=== PATIENT | male | born 1970 | race Caucasian/White ===

== ENCOUNTER 2018-01-22 09:02 | Day surgery (SDC) | payer OTHER ==
[~2018-01-22] VITALS: Ht 185.4 cm; Wt 102.1 kg
[~2018-01-22 09:02] MED LIST: ALLP100T PO; ASP325TEC PO; DIGO0.25 PO; DILT240C PO; LISI10TA PO; LSNP10T PO; MTP25TSR PO; OMEG-12 PO; PNT40TEC PO; RIVA20TA2 PO
--- OUTSIDE RECORDS SUMMARY | 2018-01-22 09:05 | XMS REPORT | Continuity of Care Document ---
Author Author [facility] Organization [facility] Address Unknown Phone Unavailable Allergies There is no data. Medications There is no data. Problems There is no data. Procedures There is no data. Results There is no data. Encounters ACCT No. Visit Date/Time Discharge Status Pt. Type Provider Facility Loc./Unit Complaint [id number] 03/02/2013 10:45:00 03/03/2013 14:26:00 DIS Inpatient [id number] 01/12/2013 18:09:00 01/14/2013 16:30:00 DIS Inpatient
[2018-01-22 09:29] VITALS: BP 158/103
[2018-01-22] MEDS ORDERED: LIDOCAINE 1% INJ 20 ML 20 ML VIAL ONE (09:40)
--- NOTE | 2018-01-22 10:33 | Implantation of Loop Monitor ---
Implant of Loop Monitior IMPLANTATION OF LOOP MONITOR REPORT DATE OF PROCEDURE: 01/22/18 PREOP DIAGNOSIS: Paroxysmal atrial flutter POSTOP DIAGNOSIS: Paroxysmal atrial flutter PROCEDURE DETAILS: The patient is a 47 male with history of paroxysmal atrial fibrillation requiring long-term surveillance. Therefore implantable loop recorder was discussed and agreed with the patient. Informed consent was taken. All risks and complications were discussed at length. The patient was draped and prepped in the usual sterile fashion. Local anesthesia was lidocaine, which was given in the substernal area close to the 4th intercostal space. Loop monitor [employer] Serial # [id number] was implanted according to the protocol. Steri- Strips were placed at the end of the procedure. There were no complications and the patient tolerated the procedure well. The device was interrogated with a voltage of. ANESTHESIA: Local anesthesia with lidocaine. COMPLICATIONS: None CONTRAST/FLUOROSCOPY: None CONCLUSION: 1. Successful reveal device implantation with no complication FINAL DIAGNOSIS: Proximal atrial flutter Congestive heart failure, chronic compensated left ventricular systolic dysfunction, nonischemic cardiomyopathy, ejection fraction 40-45 percent Hypertension Hyperlipidemia CHAR LUJAN MD January 22, 2018 10:33
[2018-01-22 10:55] VITALS: BP 129/105
== END 2018-01-22 10:59 | disposition home or self-care (01) ==
LOC: CARD 09:02
PROVIDERS: ATTEND Internal Medicine Cardiovascular Disease
DX: I48.0 Paroxysmal atrial fibrillation (principal); I11.0 Hypertensive heart disease with heart failure; I50.22 Chronic systolic (congestive) heart failure; E78.5 Hyperlipidemia, unspecified; I42.0 Dilated cardiomyopathy; N52.9 Male erectile dysfunction, unspecified; F17.210 Nicotine dependence, cigarettes, uncomplicated; Z79.899 Other long term (current) drug therapy
CPT/HCPCS: 33282; 93306

== ENCOUNTER 2019-04-06 13:30 | Inpatient (IN) | payer BC, OTHER ==
[~2019-04-06] VITALS: Ht 185.4 cm; Wt 97.2 kg
--- NOTE | 2019-04-06 13:30 | NUR ---
pt here with per . pt alert gcs 15. pt been c/o general weakness and forrester x 1 week. pt has h/o a fib and is on blood thinner xyaltro. currently pt denies chest and abd pain. c/o nausea and relates v/d 3 days ago none since. resp shallow nonlabored. skin pale and dry. i ausc hr and radial heart rate which is ? bradycardia at same time some applied tele and pt in sb 30. lungs cta with decreased aeration bases bilaterally. abd w/o pain with palpation. someone applying pacer pads. some one starting iv and labs. done kem pt at 1338.
[2019-04-06] MEDS ORDERED: NS IV 1000 ML 1,000 ML IV SCH ×2 (13:45→15:00)
[2019-04-06] MEDS ORDERED: ASPIRIN 81 MG CHEW (CHILDREN'S ASA) PO ONE (13:45)
--- NOTE | 2019-04-06 13:47 | ED Cardiac General ---
History of Present Illness General Stated Complaint: WEAKNESS;SOA Source: patient Exam Limitations: no limitations History of Present Illness Date Seen by Provider: Apr 06, 2019 Time Seen by Provider: 13:44 Initial Comments To ER per private vehicle with reports of weakness and shortness of breath. He denies chest pain. Symptoms began last Saturday after he exerted himself in the heat. He didn't urinate for about 1.5 days. He's had this sensation of weakness and shortness of breath intermittently since then, worse today. He was able to go to work this morning but felt too bad so he came here. History of ablation for atrial fibrillation. He is on diltiazem 360 mg daily, xarelto, metoprolol 100 mg daily. Timing/Duration: 1 week, getting worse Activities at Onset: none Prior CP/Workup: no prior chest pain Modifying Factors: improves with rest NTG SL ELECTRICAL APPRENTICE: No ASA po ELECTRICAL APPRENTICE: No Associated Systoms: Shortness of Air, Weakness Allergies and Home Medications Allergies Coded Allergies: No Known Drug Allergies (Unverified , 01/12/13) Home Medications Allopurinol 100 Mg Tablet, 100 MG PO DAILY, (Reported) Digoxin 0.25 Mg/5 Ml Solution, 0.25 MG PO DAILY, (Reported) Diltiazem Hcl 240 Mg Cap.sr.24h, 1 EACH PO DAILY, (Reported) Metoprolol Succinate 25 Mg Tab.sr.24h, 25 MG PO DAILY, (Reported) [place]-3/Dha/Epa/Fish Oil 1 Each Capsule.dr, 1,000 MG PO DAILY, (Reported) Pantoprazole Sodium 40 Mg Tablet.dr, 40 MG PO DAILY, (Reported) Rivaroxaban 20 Mg Tablet, 20 MG PO DAILY, (Reported) Patient Home Medication List Home Medication List Reviewed: Yes Review of Systems Review of Systems Constitutional: see HPI EENTM: No Symptoms Reported Respiratory: Shortness of Air Cardiovascular: See HPI; Denies Chest Pain Gastrointestinal: No Symptoms Reported Genitourinary: No Symptoms Reported Musculoskeletal: no symptoms reported Skin: no symptoms reported Psychiatric/Neurological: No Symptoms Reported Endocrine: No Symptoms Reported Hematologic/Lymphatic: No Symptoms Reported Past Ckgxfhy-Kveiss-Zdcknb Hx Patient Social History Recent Foreign Travel: No Contact w/Someone Who Travel: No Immunizations Up To Date Tetanus Booster (TDap): More than 5yrs Date of Pneumonia Vaccine: Mar 02, 2010 Past Medical History Reproductive Disorders: No Sexually Transmitted Disease: No HIV/AIDS: No Adverse Reaction/Blood Tranf: No (Never has had a transfusion) Family Medical History No Pertinent Family Hx Physical Exam Vital Signs Capillary Refill : Height, Weight, BMI Height: 6'1.00" Weight: 225lbs. 0.0oz. 102.775947pl; 29.7 BMI Method:Stated General Appearance: No Apparent Distress, WD/WN, Other (alert and oriented, mentating well, blood pressure is 90/74, heart rate is 28-30, narrow complex, one P wave before each QRS complex without apparent P/QRS dissociation.) Neck: Full Range of Motion, Normal Inspection Respiratory: Chest Non Tender, Lungs Clear, Normal Breath Sounds Cardiovascular: Normal Peripheral Pulses, Bradycardia Gastrointestinal: Normal Bowel Sounds, Non Tender, Soft Extremity: Normal Capillary Refill, Normal Inspection Neurologic/Psychiatric: Alert, Oriented x3 Skin: Normal Color, Warm/Dry Progress/Results/Core Measures Results/Orders Lab Results Laboratory Tests Test 04/06/19 13:40 Range/Units White Blood Count 11.3 H 4.3-11.0 10^3/uL Red Blood Count 4.62 4.35-5.85 10^6/uL Hemoglobin 13.3 13.3-17.7 G/DL Hematocrit 40 40-54 % Mean Corpuscular Volume 86 80-99 FL Mean Corpuscular Hemoglobin 29 25-34 PG Mean Corpuscular Hemoglobin Concent 33 32-36 G/DL Red Cell Distribution Width 14.5 10.0-14.5 % Platelet Count 251 130-400 10^3/uL Mean Platelet Volume 10.1 7.4-10.4 FL Neutrophils (%) (Auto) 56 42-75 % Lymphocytes (%) (Auto) 32 12-44 % Monocytes (%) (Auto) 10 0-12 % Eosinophils (%) (Auto) 2 0-10 % Basophils (%) (Auto) 1 0-10 % Neutrophils # (Auto) 6.3 1.8-7.8 X 10^3 Lymphocytes # (Auto) 3.6 1.0-4.0 X 10^3 Monocytes # (Auto) 1.1 H 0.0-1.0 X 10^3 Eosinophils # (Auto) 0.3 0.0-0.3 10^3/uL Basophils # (Auto) 0.1 0.0-0.1 10^3/uL Prothrombin Time 27.4 H 12.2-14.7 SEC INR Comment 2.4 H 0.8-1.4 Activated Partial Thromboplast Time 43 H 24-35 SEC Sodium Level 133 L 135-145 MMOL/L Potassium Level 5.6 H 3.6-5.0 MMOL/L Chloride Level 108 H 98-107 MMOL/L Carbon Dioxide Level 16 L 21-32 MMOL/L Anion Gap 9 5-14 MMOL/L Blood Urea Nitrogen 45 H 7-18 MG/DL Creatinine 1.91 H 0.60-1.30 MG/DL Estimat Glomerular Filtration Rate 38 BUN/Creatinine Ratio 24 Glucose Level 164 H 70-105 MG/DL Calcium Level 9.3 8.5-10.1 MG/DL Corrected Calcium 9.1 8.5-10.1 MG/DL Magnesium Level 1.9 1.8-2.4 MG/DL Total Bilirubin 0.5 0.1-1.0 MG/DL Aspartate Amino Transf (AST/SGOT) 23 5-34 U/L Alanine Aminotransferase (ALT/SGPT) 24 0-55 U/L Alkaline Phosphatase 74 40-136 U/L Myoglobin 103.7 H 10.0-92.0 NG/ML Troponin I < 0.028 <0.028 NG/ML B-Type Natriuretic Peptide 203.7 H <100.0 PG/ML Total Protein 7.2 6.4-8.2 GM/DL Albumin 4.2 3.2-4.5 GM/DL My Orders Orders - RIGOBERTO FELDER CARDIOPULMONARY TECHNOLOGIST Cbc With Automated Diff (04/06/19 13:34) Magnesium (04/06/19 13:34) Chest 1 View, Ap/Pa Only (04/06/19 13:34) Ekg Tracing (04/06/19 13:34) Cardiac Profile 1 (04/06/19 13:34) Comprehensive Metabolic Panel (04/06/19 13:34) Myoglobin Serum (04/06/19 13:34) Protime With Inr (04/06/19 13:34) Partial Thromboplastin Time (04/06/19 13:34) O2 (04/06/19 13:34) Monitor-Rhythm Ecg Trace Only (04/06/19 13:34) Lipid Panel (7/23/19 06:00) Ed Iv/Invasive Line Start (04/06/19 13:34) BNP (04/06/19 13:34) Aspirin Chewable Tablet (Baby Aspirin Ch (04/06/19 13:45) Ns Iv 1000 Ml (Sodium Chloride 0.9%) (04/06/19 13:45) Glucagon Emergency Kit (Glucagon Emergen (04/06/19 14:00) Ondansetron Injection (Zofran Injectio (04/06/19 14:00) Calcium Gluconate 10% Inj (Calcium Glu (04/06/19 14:15) Atropine Injection (Atropine Injection) (04/06/19 15:00) Normal Saline Bolus 1,000ml (04/06/19 15:00) Medications Given in ED Current Medications Medications Dose Ordered Sig/Aisha Route Start Time Stop Time Status Last Admin Dose Admin Aspirin 324 mg ONCE ONCE PO 04/06/19 13:45 04/06/19 13:46 DC 04/06/19 13:54 324 MG Calcium Gluconate 4.65 meq ONCE ONCE IV 04/06/19 14:15 04/06/19 14:16 DC 04/06/19 14:19 4.65 MEQ Glucagon 4 mg ONCE ONCE IV 04/06/19 14:00 04/06/19 14:01 DC 04/06/19 14:09 4 MG Ondansetron HCl 4 mg ONCE ONCE IVP 04/06/19 14:00 04/06/19 14:01 DC 04/06/19 14:04 4 MG Ondansetron HCl 4 mg ONCE ONCE IVP 04/06/19 14:15 04/06/19 14:16 DC 04/06/19 14:15 4 MG Critical Care Note Critical Care Start Time: 14:00 Stop Time: 15:15 Total Time (minutes) 75 Departure Communication (Admissions) Time/Spoke to Admitting Phy: 14:[address] Hurtado who agrees to admit. Time/Spoke to Consulting Phy: 14:[address] Lubin, agrees to consult, IV fluids, admit to ICU, weight for beta blockers to wear off. If this fails to improve heart rate then will need pacemaker. Patient had an episode of decrease in blood pressure to 79 and 80 systolic on consecutive readings. Heart rate remained 27. He was given 3 mg of IV glucagon with resultant effect of nausea and heart rate increased from 26-32. He was also given 1 g of IV calcium gluconate. He was given 8 mg of Zofran for the vomiting. His blood pressure did increase to 109 over 60s. At approximately 1445 his blood pressure again dropped to 79 systolic heart rate in the 27 range. He was given 2 doses of few minutes apart of 0.5 mg of atropine with resultant increase of heart rate from 25-35, blood pressure increased from 79 systolic to 95 systolic. If he has a recurrent drop in blood pressure into the 80 range we will proceed w ith transcutaneous pacing. Impression Primary Impression: Symptomatic bradycardia Disposition: ADMITTED INPATIENT Condition: Stable Admissions Decision to Admit Reason: Admit from ER (General) Decision to Admit/Date: Apr 06, 2019 Time/Decision to Admit Time: 13:54 Departure-Patient Inst. Referrals: CARLOS SANTOS MD (PCP) Primary Care Physician KRYSTEN BEST (Family) Primary Care Physician RIGOBERTO FELDER APRN Apr 06, 2019 13:47
[2019-04-06 13:50] LABS: BASOPHILS # (AUTO) 0.1 10^3/uL (0.0-0.1); BASOPHILS % (AUTO) 1 % (0-10); EOSINOPHILS # (AUTO) 0.3 10^3/uL (0.0-0.3); EOSINOPHILS % (AUTO) 2 % (0-10); HEMATOCRIT 40 % (40-54); HEMOGLOBIN 13.3 G/DL (13.3-17.7); LYMPHOCYTES # (AUTO) 3.6 X 10^3 (1.0-4.0); LYMPHOCYTES % (AUTO) 32 % (12-44); MEAN CORPUSCULAR HEMOGLOBIN 29 PG (25-34); MEAN CORPUSCULAR HGB CONC 33 G/DL (32-36); MEAN CORPUSCULAR VOLUME 86 FL (80-99); MEAN PLATELET VOLUME 10.1 FL (7.4-10.4); MONOCYTES # (AUTO) 1.1 X 10^3 (0.0-1.0); MONOCYTES % (AUTO) 10 % (0-12); NEUTROPHILS # (AUTO) 6.3 X 10^3 (1.8-7.8); NEUTROPHILS % (AUTO) 56 % (42-75); PLATELET COUNT 251 10^3/uL (130-400); RED CELL DISTRIBUTION WIDTH 14.5 % (10.0-14.5); WHITE BLOOD COUNT 11.3 10^3/uL (4.3-11.0)
--- NOTE | 2019-04-06 13:57 | NUR ---
bp machine is 81/48 radial hr is 28. resp 16 . p ox r/a is 99. knows v/s
[2019-04-06] MEDS ORDERED: GLUCAGON EMERGENCY 1 MG/KIT IV ONE (14:00)
[2019-04-06] MEDS ORDERED: ONDANSETRON 4 MG/2 ML (SDV) Z0FRAN IVP ONE ×2 (14:00→14:15)
--- NOTE | 2019-04-06 14:05 | NUR ---
bp machine is 78/46 tele shows sb 26 p ox r/a is 99. pt alert gcs 15 in room
[2019-04-06 14:07] LABS: INR 2.4 (0.8-1.4); PROTHROMBIN TIME PATIENT 27.4 SEC (12.2-14.7)
[2019-04-06 14:09] LABS: ALANINE AMINOTRANSFERASE 24 U/L (0-55); ALBUMIN 4.2 GM/DL (3.2-4.5); ALKALINE PHOSPHATASE 74 U/L (40-136); BILIRUBIN,TOTAL 0.5 MG/DL (0.1-1.0); BUN/CREATININE RATIO 24; CALCIUM 9.3 MG/DL (8.5-10.1); CARBON DIOXIDE 16 MMOL/L (21-32); CHLORIDE 108 MMOL/L (98-107); CREATININE SERUM 1.91 MG/DL (0.60-1.30); GFR ESTIMATED 38; GLUCOSE 164 MG/DL (70-105); MAGNESIUM 1.9 MG/DL (1.8-2.4); POTASSIUM 5.6 MMOL/L (3.6-5.0); SODIUM 133 MMOL/L (135-145); TOTAL PROTEIN 7.2 GM/DL (6.4-8.2)
--- NOTE | 2019-04-06 14:09 | NUR ---
[facility] just has 3 mg glucagon cause thats all pharmacy sent.
--- NOTE | 2019-04-06 14:12 | Diagnostic Imaging Report ---
Indication: Weakness and shortness of air Comparison: 03/02/2013 Technique: Single frontal radiographic view of the chest dated 04/06/2019. Findings: The cardiac silhouette is within normal limits in size. No significant pulmonary vascular congestion. Recorder device is identified overlying the left heart border. The lungs are clear of focal pulmonary opacity. No pleural effusion. No pneumothorax. No acute osseous abnormality. Impression: No acute cardiopulmonary abnormality with additional findings as above. Dictated by: Dictated on workstation # [id number]
[2019-04-06] MEDS ORDERED: CALCIUM GLUC. 10% 4.65 MEQ/10 ML VIAL IV ONE (14:15)
--- NOTE | 2019-04-06 14:15 | NUR ---
pt with small amount of n/v from glucagon
--- NOTE | 2019-04-06 14:21 | NUR ---
bp machine is 109/58 tele shows jr 30. pt alert gcs 15. in room. p ox r/a is 97. no acute sighns of dyspnea noted. dr knows pt now in jr.
--- NOTE | 2019-04-06 14:23 | NUR ---
pt alert gcs 15. in room. bp machine is 90/47 radial pulse is 28. p ox r/a is 98. 2nd ekg in progress. pt denies chest pain and dyspnea and no acute sighns of dyspnea noted. pt been having very small amount of n/v 2ndary to glucagon iv per
--- NOTE | 2019-04-06 14:34 | NUR ---
pt had very short burst of idioventriccal rytym then back to jr. dr culps
--- NOTE | 2019-04-06 14:39 | NUR ---
pt with another short burst of idoventrical the back to jr. bp machine is 86/51 p ox r/a is 99. knows
--- NOTE | 2019-04-06 14:46 | NUR ---
bp machine is 79/47 p ox r/a is 95. pt alert gcs 15 . in room. pt c/o vertigo. atropine by me
--- NOTE | 2019-04-06 14:46 | NUR ---
dr only wanted 0.5 mg atropine iv but then dr gave 2nd atropine 0.5 mg iv at 1448
--- NOTE | 2019-04-06 14:48 | NUR ---
200 left in bolus. bp machine is 86/54 tele shows jr 28. p ox r/a is 99.pt remains alert gcs 15 with in room.
--- NOTE | 2019-04-06 14:52 | NUR ---
bp antolin / tele shows jr rare sinus beat 35. p ox r/a is 99. drs in room
[2019-04-06] MEDS ORDERED: ATROPINE INJECTION 1 MG/1 ML SDV IJ PRN (15:00)
--- NOTE | 2019-04-06 15:00 | NUR ---
1st bolus completed and 2nd bolus started
--- NOTE | 2019-04-06 15:00 | NUR ---
pt remains alert gcs 15, remains in the room. pt denies chest and abd pain. denies nausea and no vomiting for quite awhile now. no diarrhea noted in er visit thus far. denies dyspnea and no acute sighns of dyspnea noted. resp maybe wnl now. denies vertigo. bp machine is 86/50 tele shows jr 28 rare simus beat. p ox r/a is 100.
--- NOTE | 2019-04-06 15:13 | NUR ---
v/o dr prepare for ext. pacer
[2019-04-06] MEDS ORDERED: fentaNYL INJECTION 100 MCG/2 ML AMP IVP ONE (15:15)
[2019-04-06] MEDS ORDERED: MIDAZOLAM 2 MG/2 ML (VERSED) VIAL IVP ONE (15:15)
--- NOTE | 2019-04-06 15:16 | NUR ---
. pt alert gcs 15, in room. p ox r/a is 99. in discussing care with pt. holding on ext. pacing for now. bp machine is 92/51 tele shows jr with rare sinus beat.
--- NOTE | 2019-04-06 15:55 | NUR ---
pt remains alert gcs 15. and other family in room. pt conversing with family w/o difficulty. bp machine is 92/64 ausc hr 20 irreg ausc resp 12 normal recheck temp 96.9 p x r/a is 100. tele shows jr 27 with rare sinus beat. pt denies chest pain and dyspnea and no acute sighns of dyspnea noted. denies vertigo.
--- NOTE | 2019-04-06 16:00 | NUR ---
100 left in 2 liter total bolus i will mar it off now.
--- NOTE | 2019-04-06 16:34 | NUR ---
pt remains alert gcs 15. family remains in the room. reg. came out said pt want to drink. dr adhikarid ice chips which i gave pt. pt c/o dizziness with scootching up in bed. no acute sighns of dyspnea noted. tle shows jr 31. bp machine is 93/53 ausc hr 32 reg ausc resp 12 normal recheck temp 97.3 p ox r/a is 99. pt to go to icu then to laborer wrecking and salvaging for pacemaker later today.
--- NOTE | 2019-04-06 16:52 | NUR ---
i called report to icu . spoke to kendal vanessa . they are to call me when room cleaned and ready for pt.
--- NOTE | 2019-04-06 16:56 | Consultation-Cardiology ---
HPI-Cardiology Cardiology Consultation: Date of Consultation 04/06/19 Date of Admission Attending Physician Alina Hurtado MD Admitting Physician John Ellington MD Consulting Physician Janay LUBIN MD HPI: Time Seen by a Provider: 16:30 Chief Complaint: near syncope this is a 48-year-old gentleman with history of atrial fibrillation, previous history of ablation. Follows with Dr. Conn. He is on diltiazem 360 mg daily, metoprolol 100 mg daily. According to the patient he's had atrial fibrillation with rapid ventricular rate. He presented with lightheadedness and not feeling well. He therefore did not go to his workplace. He presented to the ER and was found to be in junctional bradycardia at the rate of 30 BPM. I evaluated him at length. He took his medications at 5 a.m. this morning. During my evaluation his heart rate dropped to 27 BPM. Systolic blood pressure 95 mmHg and the patient became dizzy. He was given IV fluids. Transcutaneous pads on. Review of Systems-Cardiology Review of Systems Constitutional: As described under HPI; No As described under HPI, No no symptoms reported, No chills, No fever, No lightheadedness Eyes: No As described under HPI, No no symptoms reported, No blindness, No blurred vision, No contact lenses, No drainage, No decreased acuity, No foreign body sensation, No pain, No vision change Ears/Nose/Throat: No As described under HPI, No no symptoms reported, No chronic hearing loss, No ear discharge, No ear pain, No nasal drainage, No ulcerations Respiratory: No no symptoms reported; As described under HPI; No As described under HPI, No cough, No orthopnea, No shortness of breath, No SOB with excertion Cardiovascular: No no symptoms reported; As described under HPI; No As described under HPI, No chest pain, No edema, No irregular heart rate; lightheadedness; No palpitations Gastrointestinal: No no symptoms reported, No As described under HPI, No abdomen distended, No abdominal pain, No blood streaked bowels, No constipation, No diarrhea, No nausea, No vomiting, No stool coloration changes Genitourinary: No As described under HPI, No burning, No dysuria, No discharge, No frequency, No flank pain, No hematuria, No urgency Skin: No rash, No skin related problems, No ulcerations Psychiatric/Neurological: No anxiety, No depression, No seizure, No focal weakness, No syncope Hematologic: No bleeding abnormalities [id number]-Yiikkt Hx Patient Social History Alcohol Use: Occasionally Uses Recreational Drug Use: No Smoking Status: Current Everyday Smoker Recent Foreign Travel: No Recent Infectious Disease Expo: No Immunizations Up To Date Tetanus Booster (TDap): More than 5yrs Date of Pneumonia Vaccine: Mar 02, 2010 Past Medical History PMH As described under Assessment. Allergies and Home Medications Allergies Coded Allergies: No Known Drug Allergies (Unverified , 01/12/13) Home Medications Allopurinol 100 Mg Tablet, 100 MG PO DAILY, (Reported) Digoxin 0.25 Mg/5 Ml Solution, 0.25 MG PO DAILY, (Reported) Diltiazem Hcl 240 Mg Cap.sr.24h, 1 EACH PO DAILY, (Reported) Metoprolol Succinate 25 Mg Tab.sr.24h, 25 MG PO DAILY, (Reported) [place]-3/Dha/Epa/Fish Oil 1 Each Capsule.dr, 1,000 MG PO DAILY, (Reported) Pantoprazole Sodium 40 Mg Tablet.dr, 40 MG PO DAILY, (Reported) Rivaroxaban 20 Mg Tablet, 20 MG PO DAILY, (Reported) Patient Home Medication List Home Medication List Reviewed: Yes Physical Exam-Cardiology Physical Exam Vital Signs/I&O 04/06/19 04/06/19 13:30 14:48 Temp 97.0 97.0 Pulse 20 Resp 16 B/P (MAP) 106/72 (83) Pulse Ox 100 O2 Delivery Room Air Capillary Refill : Less Than 3 Seconds Constitutional: appears stated age, AAO x 3; No apparent distress; well- developed, well-nourished HEENT: PERRL; No normal ENT inspection, No TMs normal, No pharynx normal, No scleral icterus (R), No scleral icterus (L), No pale conjunctivae (R), No pale conjunctivae (L), No photophobia, No TM abnormal (R), No TM abnormal (L), No pharyngeal erythema, No tonsillar exudate, No other, No discharge, No EOMI; hearing is well preserved; No hard of hearing; oral hygience is good; No ulceration, No xanthelasmas are seen Neck: No non-tender, No full range of motion, No supple, No normal inspection, No carotid bruit, No limited range of motion, No lymphadenopathy (R), No lymphadenopathy (L), No tender lateral, No tender midline, No thyromegaly, No other; carotid pulses are 2 + bilaterally; No with good upstrokes Respiratory: No accessory muscle use, No respiratory distress, No chest tender, No chest expansion is symmetric; chest is bilaterally symmetric; No lungs clear to percussion; lungs clear to auscultation; No crackles, No rhonchi, No rales, No stridor, No wheezing, No pleural rub, No other Cardiovascular: regular rate-rhythm, bradycardia, S1 and S2 Gastrointestinal: No tender, No soft, No round, No distended, No pulsatile mass, No organomegaly, No guarding, No rebound, No tenderness, No hernia, No mass, No audible bowel sounds, No abnormal bowel sounds, No abdominal bruits, No spleenomegaly, No other Rectal: deferred Extremities: No normal range of motion, No non-tender, No normal inspection, No pedal edema, No calf tenderness, No normal capillary refill, No pelvis stable, No calf tenderness, No inflammation, No pedal edema, No slow capillary refill, No swelling, No other, No abrasion, No clubbing, No cyanosis, No ecchymosis, No laceration, No no lower extremity edema bilateral, No significant edema, No tenderness, No wound Neurologic/Psychiatric: no motor/sensory deficits, alert, normal mood/affect, oriented x 3, power is 5/5 both on sides Skin: No normal color, No warm/dry, No cyanosis, No cool, No diaphoresis, No damp, No ecchymosis, No jaundice, No mottled, No pallor, No rash, No tattoos/piercings, No ulcerations, No rash on exposed areas, No ulcerations on exposed areas, No other Data Review Labs Laboratory Tests 04/06/19 13:40: White Blood Count 11.3H, Red Blood Count 4.62, Hemoglobin 13.3, Hematocrit 40, Mean Corpuscular Volume 86, Mean Corpuscular Hemoglobin 29, Mean Corpuscular Hemoglobin Concent 33, Red Cell Distribution Width 14.5, Platelet Count 251, Mean Platelet Volume 10.1, Neutrophils (%) (Auto) 56, Lymphocytes (%) (Auto) 32, Monocytes (%) (Auto) 10, Eosinophils (%) (Auto) 2, Basophils (%) (Auto) 1, Neutrophils # (Auto) 6.3, Lymphocytes # (Auto) 3.6, Monocytes # (Auto) 1.1H, Eosinophils # (Auto) 0.3, Basophils # (Auto) 0.1, Prothrombin Time 27.4H, INR Comment 2.4H, Activated Partial Thromboplast Time 43H, Sodium Level 133L, Potassium Level 5.6H, Chloride Level 108H, Carbon Dioxide Level 16L, Anion Gap 9, Blood Urea Nitrogen 45H, Creatinine 1.91H, Estimat Glomerular Filtration Rate 38, BUN/Creatinine Ratio 24, Glucose Level 164H, Calcium Level 9.3, Corrected Calcium 9.1, Magnesium Level 1.9, Total Bilirubin 0.5, Aspartate Amino Transf (AST/SGOT) 23, Alanine Aminotransferase (ALT/SGPT) 24, Alkaline Phosphatase 74, Myoglobin 103.7H, Troponin I < 0.028, B-Type Natriuretic Peptide 203.7H, Total Protein 7.2, Albumin 4.2, Thyroid Stimulating Hormone (TSH) 1.12 ECG Impression ECG Comment junctional bradycardia or slow atrial fibrillation. A/P-Cardiology Assessment/Admission Diagnosis severe symptomatic sinus node dysfunction, Atrial fibrillation, Acute kidney injury Plan patient has atrial fibrillation with rapid ventricular rate history. Previous history of ablation. He is on rate controlling agents including diltiazem 360 mg and metoprolol 100 mg daily. He continues to be on oral anti-coagulation therapy. He presented with near syncope and severe bradycardia. During my evaluation his heart rate dropped to 27 bpm and the patient became dizzy. Systolic blood pressure 95 mmHg. last dose of rate controlling agents was 5 o'clock this morning. I discussed at length with the patient and due to his atrial fibrillation with rapid ventricular rate metoprolol and diltiazem are essential drug therapy. He will very likely require a permanent pacemaker. However urgently we will have to proceed with a temporary pacemaker. Informed consent was taken. half percent risk of damage to the heart or blood vessel. request echocardiogram . hold oral anti-coagulation for possible PPM. Acute kidney injury, IV fluids. Thank you for your consultation. Please call me if you have any questions. Siomara Lubin MD, FACP, FACC, FSCAI, FHRS, CCDS Interventional Cardiology Cardiac Electrophysiology Vascular Medicine and Endovascular Interventions Clinical Quality Measures AMI/AHF: ASA po Prior to arrival: Janay Matta MD Apr 06, 2019 16:56
--- NOTE | 2019-04-06 17:07 | NUR ---
i am taking pt to icu now. crash cart tele continues to floor
--- NOTE | 2019-04-06 17:18 | NUR ---
CLEMENTE SERNA admitted to room CU10-1, with an admitting diagnosis of BRADYCARDIA, on 04/06/19 from ER via BED, accompanied by STAFF/FAMILY.CLEMENTE SERNA introduced to surroundings, call light, bed controls, phone, TV, temperature control, lights, meal times, smoking policy, visitor policy, side rail policy, bathrooms and showers. Patient Rights given to patient in the handbook. CLEMENTE SERNA verbalizes understanding that [facility] is not responsible for the loss or damage to any personal effects or valuables that are kept in the patients posession during their hospitalization. The following Patient Care Plans were discussed with the PT: Discharge Planning, ANXIETY,ACTIVITY INTOLERANCE, and KNOWLEDGE DEFICIT. CLEMENTE SERNA verbalizes understanding of Interdisciplinary Patient Education. Patient and family were informed about the Rapid Response Team and its purpose.
[2019-04-06 17:30] VITALS: BP 86/63
[2019-04-06] MEDS ORDERED: CATHETER FLUSH 10 ML SYR IV PRN (17:45)
[2019-04-06] MEDS: LACTATED RINGERS 1,000 ML IV SCH ×2 (17:46→23:30)
--- NOTE | 2019-04-06 17:58 | NUR ---
PT LEFT VIA BED W/ CASE MANAGERS STAFF AND FAMILY.
[2019-04-06] MEDS ORDERED: LIDOCAINE 1% INJ 20 ML 20 ML VIAL ONE (18:01)
[2019-04-06] MEDS ORDERED: MIDAZOLAM 5 MG/5 ML (VERSED) VIAL ONE (18:01)
[2019-04-06] MEDS ORDERED: fentaNYL INJECTION 100 MCG/2 ML AMP ONE (18:01)
[2019-04-06] MEDS ORDERED: HEParin (CATH LAB) 1,000 ML IV ONE (18:01)
--- NOTE | 2019-04-06 18:41 | Cardiac Procedure Note-CS/ASA ---
Pre-Procedure Note Pre-Op Procedure Note H&P Reviewed The H&P was reviewed, patient examined and no changes noted. Date H&P Reviewed: Apr 06, 2019 Time H&P Reviewed: 17:00 Conscious Sedation Pre-Proced Time 17:00 ASA Score 3 For ASA 3 and 4: Consider anesthesia and medical clearance. Also, for patients with a history of failed moderate sedation consider anesthesia. Airway Lungs Heart ASA score ASA 1: a normal healthy patient ASA 2: a patient with a mild systemic disease (mid diabetes, controlled hypertension, obesity ASA 3: a patient with a severe systemic disease that limits activity (angina, COPD, prior Myocardial infarction) ASA 4: a patient with an incapacitating disease that is a constant threat to life (CHF, renal failure) ASA 5: a moribund patient not expected to survive 24 hrs. (ruptured aneurysm) ASA 6: a declared brain- patient whose organs are being harvested. For emergent operations, add the letter E after the classification Mallampati Classification Grade 1 Sedation Plan Analgesia, Amnesia, Plan communicated to team members, Discussed options with patient/fam, Discussed risks with patient/fam The patient is an appropriate candidate to undergo the planned procedure, sedation, and anesthesia. The patient immediately re-assessed prior to indication. Janay DAVIS MD Apr 06, 2019 18:41
--- NOTE | 2019-04-06 18:44 | Cardiology Post Procedure Note ---
Post-Procedure Note Physician (s)/Strategic Sourcing Manager (s) Physician Janay DAVIS MD Pre-Procedure Diagnosis Pre-Procedure Diagnosis: Symptomatic bradycardia Post-Procedure Note Procedure Start Date: Apr 06, 2019 Procedure Start Time: 18:20 Name of Procedure: Temporary pacemaker implantation via right femoral venous approach. Findings/Procedure Note Junctional escape rhythm at 30bpm. Right femoral vein access. Temporary pacemaker placed in the RV apex. Capture threshold <0.2mv. Sutured/secured. Anesthesia Type: Conscious Sedation Estimated blood loss (mL): 0 Contrast Amount: 0 Post-Procedure Diagnosis Post-operative diagnosis: Symptomatic bradycardia, s/p temporary pacemaker placement Janay DAVIS MD Apr 06, 2019 18:44
--- NOTE | 2019-04-06 19:01 | NUR ---
PT BACK W/ MEDICINE MAN STAFF VIA BED. RIGHT GROIN TRANSVENOUS PACEMAKER NOTED. VSS. FAMILY AT BEDSIDE.
[2019-04-06 19:15] VITALS: BP 101/63
[2019-04-06 20:00] VITALS: BP 105/68
[2019-04-06 21:00] VITALS: BP 126/69
[2019-04-06 22:00] VITALS: BP 136/70
[2019-04-06] MEDS: oxyCODONE/APAP 5/325MG (PERCOCET 5) TABLET PO PRN (22:09)
[2019-04-06 23:00] VITALS: BP 132/75
--- OUTSIDE RECORDS SUMMARY | 2019-04-06 23:07 | XMS REPORT | Continuity of Care Document ---
Author Author [facility] Organization [facility] Address Unknown Phone Unavailable Care Team Providers Care Buncher Hand Name Role Phone NO, LOCAL PHYSICIAN PP Unavailable Insurance Providers Payer Name Policy Number Subscriber Name Relationship Unknown Clemente Negron 01 Self / Same As Patient Advance Directives Directive Response Recorded Date Advance Directives N 01/12/13 9:31pm Health Care Power of Aco Coordinator N 01/12/13 9:31pm Organ Donor N 01/12/13 9:31pm Problems No Known Problems or Medical conditions. Family History History Response Recorded Date/Time Hx Family Cancer N 01/12/13 9:34pm Social History History Response Recorded Date/Time Alcohol Use Occasionally Uses 01/12/13 9:32pm Recreational Drug Use N 01/12/13 9:32pm Recent Foreign Travel N 01/12/13 9:32pm Recent Infectious Disease Exposure N 01/12/13 9:32pm Hospitalization with Isolation Denies 01/14/13 8:28pm Allergies, Adverse Reactions, Alerts Allergen Type Severity Reaction Last Updated No Known Drug Allergies 01/12/13 Medications Medication Dose Units Route Sig Qty Days [place]-3/Dha/Epa/Fish Oil (Fish Oil 1,000 Mg Ec Softgel) 3 Tab PO DAILY Metoprolol Succinate (Toprol Xl 25MG) 25 Mg PO DAILY Lisinopril (Prinivil) 10 Mg PO DAILY Pantoprazole Sodium (Protonix) 40 Mg PO DAILY 30 Aspirin (Aspirin Ec 325 Mg) 325 Mg PO DAILY Lisinopril (Zestril) 30 Mg PO DAILY Response Recorded Date/Time Status not known Unknown Results Test Date Result Interp. Ref. Range Activated Partial Thromboplast Time January 14, 2013 6:00am 71 SEC H 24-35 Alanine Aminotransferase (ALT/SGPT) January 13, 2013 2:25am 41 U/L N 30-65 Albumin January 13, 2013 2:25am 3.5 G/DL N 3.4-5.0 Alkaline Phosphatase January 13, 2013 2:25am 89 U/L N 50-136 Aspartate Amino Transf (AST/SGOT) January 13, 2013 2:25am 19 U/L N 15-37 BUN/Creatinine Ratio January 13, 2013 2:25am 24 - Band Neutrophils January 12, 2013 5:24pm 2 % - Basophils # (Auto) January 12, 2013 5:24pm 0.0 10^3/uL N 0.0-0.1 Basophils % (Manual) January 12, 2013 5:24pm 0 % - Basophils (%) (Auto) January 12, 2013 5:24pm 0 % N 0-10 Blood Urea Nitrogen January 13, 2013 2:25am 24 MG/DL H 7-18 Calcium Level January 13, 2013 2:25am 8.2 MG/DL L 8.5-10.1 Carbon Dioxide Level January 13, 2013 2:25am 24 MMOL/L N 21-32 Chloride Level January 13, 2013 2:25am 105 MMOL/L N 101-110 Cholesterol Level January 13, 2013 2:25am 158 MG/DL N -200 Creatine Kinase MB January 12, 2013 5:24pm 0.5 NG/ML N 0.0-3.6 Creatinine January 13, 2013 2:25am 1.0 MG/DL N 0.6-1.3 Eosinophils # (Auto) January 12, 2013 5:24pm 0.0 10^3/uL N 0.0-0.3 Eosinophils % (Manual) January 12, 2013 5:24pm 0 % - Eosinophils (%) (Auto) January 12, 2013 5:24pm 0 % N 0-10 Glucose Level January 13, 2013 2:25am 133 MG/DL H 74-106 HDL Cholesterol January 13, 2013 2:25am 26 MG/DL L 35-60 Hematocrit January 14, 2013 6:00am 37 % L 40-54 Hemoglobin January 14, 2013 6:00am 12.4 G/DL L 13.3-17.7 LDL Cholesterol January 13, 2013 2:25am 56 MG/DL N 0-129 Lymphocytes # (Auto) January 12, 2013 5:24pm 1.6 X 10^3 N 1.0-4.0 Lymphocytes % (Manual) January 12, 2013 5:24pm 9 % - Lymphocytes (%) (Auto) January 12, 2013 5:24pm 11 % L 12-44 Magnesium Level January 12, 2013 5:24pm 1.4 MG/DL L 1.8-2.4 Mean Corpuscular Hemoglobin January 14, 2013 6:00am 30 PG N 25-34 Mean Corpuscular Hemoglobin Concent January 14, 2013 6:00am 34 G/DL N 32-36 Mean Corpuscular Volume January 14, 2013 6:00am 88 FL N 80-99 Mean Platelet Volume January 14, 2013 6:00am 10.2 FL N 7.4-10.4 Monocytes # (Auto) January 12, 2013 5:24pm 0.2 X 10^3 N 0.0-1.0 Monocytes % (Manual) January 12, 2013 5:24pm 1 % - Monocytes (%) (Auto) January 12, 2013 5:24pm 1 % N 0-12 Myoglobin January 12, 2013 5:24pm 49 UG/L N 10-92 Neutrophils # (Auto) January 12, 2013 5:24pm 13.1 X 10^3 H 1.8-7.8 Neutrophils % (Manual) January 12, 2013 5:24pm 88 % - Neutrophils (%) (Auto) January 12, 2013 5:24pm 88 % H 42-75 Platelet Count January 14, 2013 6:00am 244 10^3/uL N 130-400 Potassium Level January 13, 2013 2:25am 3.9 MMOL/L N 3.6-5.0 Prothrombin Time January 13, 2013 2:25am 12.9 SEC N 12.2-14.7 Red Blood Count January 14, 2013 6:00am 4.21 10^6/uL L 4.35-5.85 Red Cell Distribution Width January 14, 2013 6:00am 13.1 % N 10.0-14.5 Sodium Level January 13, 2013 2:25am 139 MMOL/L N 135-145 Thyroid Stimulating Hormone (TSH) January 13, 2013 2:25am 0.65 UIU/ML N 0.34-5.60 Total Bilirubin January 13, 2013 2:25am 0.3 MG/DL N 0.0-1.0 Total Creatine Kinase January 12, 2013 5:24pm 121 U/L N 1-205 Total Protein January 13, 2013 2:25am 7.0 G/DL N 6.4-8.2 Triglycerides Level January 13, 2013 2:25am 381 MG/DL H 30.0-150.0 Troponin I January 12, 2013 11:21pm < 0.10 NG/ML 0.00-0.10 VLDL Cholesterol January 13, 2013 2:25am 76 MG/DL H 5-40 White Blood Count January 14, 2013 6:00am 8.0 10^3/uL N 4.3-11.0 Glucometer January 14, 2013 2:08pm 98 MG/DL N 70-110 Estimat Glomerular Filtration Rate January 12, 2013 5:24pm 56 - Blood Morphology Comment January 12, 2013 5:24pm NORMAL - INR Comment January 13, 2013 2:25am 1.0 N 0.8-1.4 Procedures Procedure Code Date DX ULTRASOUND-HEART 88.72 01/13/13 HEART COUNTERSHOCK NEC 99.62 01/13/13 MRSA Screen 01/12/13 Encounters Encounter Location Date/Time Discharged Inpatient [facility] 01/12/13 6:09pm
--- OUTSIDE RECORDS SUMMARY | 2019-04-06 23:07 | XMS REPORT | Continuity of Care Document ---
Author Author [facility] Organization [facility] Address Unknown Phone Unavailable Support Name Relationship Address Phone AMAN NEGRON Next Of Kin [address] [facility] [place] [address] Insurance Providers Payer Name Policy Number Subscriber Name Relationship [employer] [id number] Presley Negron 01 Self / Same As Patient Advance Directives Directive Response Recorded Date Advance Directives N 03/02/13 9:31am Health Care Power of Retail Sales Clerk N 03/02/13 9:31am Organ Donor N 03/02/13 9:31am Problems No Known Problems or Medical conditions. Family History History Response Recorded Date/Time Hx Family Cancer N 01/12/13 9:34pm Social History History Response Recorded Date/Time Alcohol Use Occasionally Uses 01/12/13 9:32pm Recreational Drug Use N 01/12/13 9:32pm Recent Foreign Travel N 01/12/13 9:32pm Recent Infectious Disease Exposure N 01/12/13 9:32pm Hospitalization with Isolation Denies 03/03/13 3:54pm Allergies, Adverse Reactions, Alerts Allergen Type Severity Reaction Last Updated No Known Drug Allergies 01/12/13 Medications Medication Dose Units Route Sig Qty Days Digoxin 0.25 Mg PO DAILY Diltiazem HCl (Diltiazem Cd 240 Mg (Once Daily)) 1 Each PO DAILY Rivaroxaban (Xarelto) 20 Mg PO DAILY Allopurinol (Zyloprim) 100 Mg PO DAILY [place]-3/Dha/Epa/Fish Oil (Fish Oil 1,000 Mg Ec Softgel) 1000 Mg PO DAILY Metoprolol Succinate (Toprol Xl 25MG) 25 Mg PO DAILY Pantoprazole Sodium (Protonix) 40 Mg PO DAILY Lisinopril (Prinivil) 10 Mg PO DAILY Aspirin (Aspirin Ec 325 Mg) 325 Mg PO DAILY Lisinopril (Zestril) 30 Mg PO DAILY Immunizations Name Given Type Date of Pneumonia Vaccine 03/02/10 H Response Recorded Date/Time Status not known Unknown [...] Location Date/Time Discharged Inpatient [facility] 03/02/13 10:45am
--- OUTSIDE RECORDS SUMMARY | 2019-04-06 23:08 | XMS REPORT | Continuity of Care Document ---
Author Organization Unknown Address Unknown Allergies Active Description Code Type Severity Reaction Onset Reported/Identified Relationship to Patient Clinical Status Yes No Known Drug Allergies [id number] Drug Allergy Unknown N/A 01/12/2013 Medications There is no data. Problems Date Dx Coded Attending Type Code Diagnosis Diagnosed By 01/14/2013 CHAR LUJAN MD Ot 272.4 HYPERLIPIDEMIA NEC/NOS 01/14/2013 CHAR LUJAN MD Ot 274.9 GOUT NOS 01/14/2013 CHAR LUJAN MD Ot 401.9 HYPERTENSION NOS 01/14/2013 CHAR LUJAN MD Ot 427.32 ATRIAL FLUTTER 01/14/2013 CHAR LUJAN MD Ot 428.0 CONGESTIVE HEART FAILURE NOS 03/03/2013 CHAR LUJAN MD Ot 272.4 HYPERLIPIDEMIA NEC/NOS 03/03/2013 CHAR LUJAN MD Ot 274.9 GOUT NOS 03/03/2013 CHAR LUJAN MD Ot 305.1 TOBACCO USE DISORDER 03/03/2013 CHAR LUJAN MD Ot 401.9 HYPERTENSION NOS 03/03/2013 CHAR LUJAN MD Ot 427.31 ATRIAL FIBRILLATION 03/03/2013 CHAR LUJAN MD Ot 427.32 ATRIAL FLUTTER 03/03/2013 CHAR LUJAN MD Ot 428.0 CONGESTIVE HEART FAILURE NOS 03/03/2013 CHAR LUJAN MD Ot 428.23 ACUTE CHRONIC SYSTOLIC HRT FAILURE 03/03/2013 CHAR LUJAN MD Ot 429.89 ILL-DEFINED HRT DIS NEC 03/03/2013 CHAR LUJAN MD Ot 458.9 HYPOTENSION NOS 03/03/2013 CHAR LUJAN MD Ot 790.29 OTHER ABNORMAL GLUCOSE 01/22/2018 CHAR LUJAN MD Ot E78.5 HYPERLIPIDEMIA, UNSPECIFIED 01/22/2018 CHAR LUJAN MD Ot F17.210 NICOTINE DEPENDENCE, CIGARETTES, UNCOMPL 01/22/2018 CHAR LUJAN MD Ot I11.0 HYPERTENSIVE HEART DISEASE WITH HEART FA 01/22/2018 CHAR LUJAN MD Ot I42.0 DILATED CARDIOMYOPATHY 01/22/2018 CHAR LUJAN MD Ot I48.0 PAROXYSMAL ATRIAL FIBRILLATION 01/22/2018 CHAR LUJAN MD Ot I50.22 CHRONIC SYSTOLIC (CONGESTIVE) HEART FAIL 01/22/2018 CHAR LUJAN MD Ot N52.9 MALE ERECTILE DYSFUNCTION, UNSPECIFIED 01/22/2018 CHAR LUJAN MD Ot Z79.899 OTHER LONGTERM (CURRENT) DRUG THERAPY 01/24/2018 CHAR LUJAN MD Ot E78.5 HYPERLIPIDEMIA, UNSPECIFIED 01/24/2018 CHAR LUJAN MD Ot F17.210 NICOTINE DEPENDENCE, CIGARETTES, UNCOMPL 01/24/2018 CHAR LUJAN MD Ot I11.0 HYPERTENSIVE HEART DISEASE WITH HEART FA 01/24/2018 CHAR LUJAN MD Ot I42.0 DILATED CARDIOMYOPATHY 01/24/2018 CHAR LUJAN MD Ot I48.0 PAROXYSMAL ATRIAL FIBRILLATION 01/24/2018 CHAR LUJAN MD Ot I50.22 CHRONIC SYSTOLIC (CONGESTIVE) HEART FAIL 01/24/2018 CHAR LUJAN MD Ot N52.9 MALE ERECTILE DYSFUNCTION, UNSPECIFIED 01/24/2018 CHAR LUJAN MD Ot Z79.899 OTHER FABRICATOR SPECIAL ITEMS (CURRENT) DRUG THERAPY 01/28/2018 CHAR LUJAN MD Ot E78.5 HYPERLIPIDEMIA, UNSPECIFIED 01/28/2018 CHAR LUJAN MD Ot F17.210 NICOTINE DEPENDENCE, CIGARETTES, UNCOMPL 01/28/2018 CHAR LUJAN MD Ot I11.0 HYPERTENSIVE HEART DISEASE WITH HEART FA 01/28/2018 CHAR LUJAN MD Ot I42.0 DILATED CARDIOMYOPATHY 01/28/2018 CHAR LUJAN MD Ot I48.0 PAROXYSMAL ATRIAL FIBRILLATION 01/28/2018 CHAR LUJAN MD Ot I50.22 CHRONIC SYSTOLIC (CONGESTIVE) HEART FAIL 01/28/2018 CHAR LUJAN MD Ot N52.9 MALE ERECTILE DYSFUNCTION, UNSPECIFIED 01/28/2018 CHAR LUJAN MD Ot Z79.899 OTHER FABRICATOR SPECIAL ITEMS (CURRENT) DRUG THERAPY Procedures Code Description Performed By Performed On 88.72 DX ULTRASOUND-HEART 01/13/2013 99.62 HEART COUNTERSHOCK NEC 01/13/2013 88.72 DX ULTRASOUND-HEART 03/02/2013 Results Test Result Range Complete blood count (CBC) with automated white blood cell (WBC) differential - 04/06/19 13:40 Blood leukocytes automated count (number/volume) 11.3 10*3/uL 4.3-11.0 Blood erythrocytes automated count (number/volume) 4.62 10*6/uL 4.35-5.85 Venous blood hemoglobin measurement (mass/volume) 13.3 g/dL 13.3-17.7 Blood hematocrit (volume fraction) 40 % 40-54 Automated erythrocyte mean corpuscular volume 86 [foz_us] 80-99 Automated erythrocyte mean corpuscular hemoglobin (mass per erythrocyte) 29 pg 25-34 Automated erythrocyte mean corpuscular hemoglobin concentration measurement (mass/volume) 33 g/dL 32-36 Automated erythrocyte distribution width ratio 14.5 % 10.0- 14.5 Automated blood platelet count (count/volume) 251 10*3/uL 130-400 Automated blood platelet mean volume measurement 10.1 [foz_us] 7.4-10.4 Automated blood neutrophils/100 leukocytes 56 % 42-75 Automated blood lymphocytes/100 leukocytes 32 % 12-44 Blood monocytes/100 leukocytes 10 % 0-12 Automated blood eosinophils/100 leukocytes 2 % 0-10 Automated blood basophils/100 leukocytes 1 % 0-10 Blood neutrophils automated count (number/volume) 6.3 10*3 1.8-7.8 Blood lymphocytes automated count (number/volume) 3.6 10*3 1.0-4.0 Blood monocytes automated count (number/volume) 1.1 10*3 0.0- 1.0 Automated eosinophil count 0.3 10*3/uL 0.0-0.3 Automated blood basophil count (count/volume) 0.1 10*3/uL 0.0-0.1 PT panel in platelet poor plasma by coagulation assay - 04/06/19 13:40 Prothrombin time (PT) in platelet poor plasma by coagulation assay 27.4 s 12.2-14.7 INR in platelet poor plasma or blood by coagulation assay 2.4 0.8-1.4 Activated partial thromboplastin time (aPTT) in platelet poor plasma bycoagulation assay - 04/06/19 13:40 Activated partial thromboplastin time (aPTT) in platelet poor plasma bycoagulation assay 43 s 24-35 Comprehensive metabolic panel - 04/06/19 13:40 Serum or plasma sodium measurement (moles/volume) 133 mmol/L 135-145 Serum or plasma potassium measurement (moles/volume) 5.6 mmol/L 3.6-5.0 Serum or plasma chloride measurement (moles/volume) 108 mmol/L 98-107 Carbon dioxide 16 mmol/L 21-32 Serum or plasma anion gap determination (moles/volume) 9 mmol/L 5-14 Serum or plasma urea nitrogen measurement (mass/volume) 45 mg/dL 7-18 Serum or plasma creatinine measurement (mass/volume) 1.91 mg/dL 0.60-1.30 Serum or plasma urea nitrogen/creatinine mass ratio 24 NRG Serum or plasma creatinine measurement with calculation of estimated glomerular filtration rate 38 NRG Serum or plasma glucose measurement (mass/volume) 164 mg/dL 70-105 Serum or plasma calcium measurement (mass/volume) 9.3 mg/dL 8.5-10.1 Serum or plasma total bilirubin measurement (mass/volume) 0.5 mg/dL 0.1-1.0 Serum or plasma alkaline phosphatase measurement (enzymatic activity/volume) 74 U/L 40-136 Serum or plasma aspartate aminotransferase measurement (enzymatic activity/volume) 23 U/L 5-34 Serum or plasma alanine aminotransferase measurement (enzymatic activity/volume) 24 U/L 0-55 Serum or plasma protein measurement (mass/volume) 7.2 g/dL 6.4-8.2 Serum or plasma albumin measurement (mass/volume) 4.2 g/dL 3.2-4.5 CALCIUM CORRECTED 9.1 mg/dL 8.5-10.1 Magnesium - 04/06/19 13:40 Magnesium 1.9 mg/dL 1.8-2.4 Serum or plasma troponin i.cardiac measurement (mass/volume) - 04/06/19 13:40 Serum or plasma troponin i.cardiac measurement (mass/volume) < ng/mL <0.028 Myoglobin, serum - 04/06/19 13:40 Myoglobin, serum 103.7 ng/mL 10.0-92.0 Serum or plasma lithium measurement (moles/volume) - 04/06/19 13:40 BNP PT 203.7 pg/mL <100.0 THYROID STIMULATING HORMONE - 04/06/19 13:40 THYROID STIMULATING HORMONE 1.12 u[iU]/mL 0.35-4.94 Encounters ACCT No. Visit Date/Time Discharge Status Pt. Type Provider Facility Loc./Unit Complaint [id number] 02/18/2018 20:00:00 02/18/2018 23:59:59 CLS Preadmit CHAR LUJAN MD [facility] SLEEP BRIAN G47.33 [id number] 01/22/2018 09:02:00 01/22/2018 10:59:00 DIS Outpatient CHAR LUJAN MD [facility] CARD AFIB [id number] 01/21/2018 11:54:00 01/21/2018 23:59:59 CLS Preadmit CHAR LUJAN MD [facility] CARD I48.0 ATRIAL FLUTTER [id number] 03/02/2013 10:45:00 03/03/2013 14:26:00 DIS Inpatient CHAR LUJAN MD [facility] ICU CHF, A FLUTTER, HTN,AFIB [id number] 01/12/2013 18:09:00 01/14/2013 16:30:00 DIS Inpatient CHAR LUJAN MD [facility] CSD A FIB/FLUTTER [id number] 04/06/2019 13:52:00 Document Registration [id number] 01/22/2018 09:03:00 Document Registration
[2019-04-07] VITALS (22 sets, daily range): BP systolic 91–166; BP diastolic 57–98
--- NOTE | 2019-04-07 00:14 | NUR ---
FENTANYL AND VERSED NON-ADMIN AT THIS TIME - GIVEN IN PRODUCT SUPPORT CONSULTANT
--- OUTSIDE RECORDS SUMMARY | 2019-04-07 01:15 | XMS REPORT | Continuity of Care Document ---
Author Organization Unknown Address Unknown Allergies Active Description Code Type Severity Reaction Onset Reported/Identified Relationship to Patient Clinical Status Yes No Known Drug Allergies [id number] Drug Allergy Unknown N/A 01/12/2013 Medications There is no data. Problems Date Dx Coded Attending Type Code Diagnosis Diagnosed By 01/14/2013 CHAR LUJAN MD Ot 272.4 HYPERLIPIDEMIA NEC/NOS 01/14/2013 CHAR LUJAN MD Ot 274.9 GOUT NOS 01/14/2013 CHAR LUJAN MD Ot 401.9 HYPERTENSION NOS 01/14/2013 HCAR LUJAN MD Ot 427.32 ATRIAL FLUTTER 01/14/2013 [...] 01/22/2018 CHAR LUJAN MD Ot Z79.899 OTHER SHELTER (CURRENT) DRUG THERAPY 01/24/2018 CHAR LUJAN MD [...] 01/24/2018 CHAR LUJAN MD Ot Z79.899 OTHER MOLDER CLOSED MOLDS (CURRENT) DRUG THERAPY 01/28/2018 CHAR LUJAN MD [...] 01/28/2018 CHAR LUJAN MD Ot Z79.899 OTHER MOLDER CLOSED MOLDS (CURRENT) DRUG THERAPY Procedures Code Description Performed [...] Status Pt. Type Provider Facility Loc./Unit Complaint [id number] 02/18/2018 20:00:00 02/18/2018 23:59:59 CLS Preadmit CHAR LUJAN MD [facility] SLEEP BRIAN G47.33 [id number] 01/22/2018 09:02:00 01/22/2018 10:59:00 DIS Outpatient CHAR LUJAN MD [facility] CARD AFIB [id number] 01/21/2018 11:54:00 01/21/2018 23:59:59 CLS Preadmit CHAR LUJAN MD [facility] CARD I48.0 ATRIAL FLUTTER [id number] 03/02/2013 10:45:00 03/03/2013 14:26:00 DIS Inpatient CHAR LUJAN MD [facility] ICU CHF, A FLUTTER, HTN,AFIB [id number] 01/12/2013 18:09:00 01/14/2013 16:30:00 DIS Inpatient CHAR LUJAN MD [facility] CSD A FIB/FLUTTER [id number] 04/06/2019 13:52:00 Document Registration [id number] 01/22/2018 09:03:00 Document Registration
[2019-04-07] MEDS: oxyCODONE/APAP 5/325MG (PERCOCET 5) TABLET PO PRN ×5 (01:31→19:53)
[2019-04-07 03:31] LABS: BASOPHILS % (AUTO) 0 % (0-10); EOSINOPHILS # (AUTO) 0.1 10^3/uL (0.0-0.3); EOSINOPHILS % (AUTO) 1 % (0-10); HEMATOCRIT 37 % (40-54); HEMOGLOBIN 12.1 G/DL (13.3-17.7); LYMPHOCYTES # (AUTO) 2.9 X 10^3 (1.0-4.0); LYMPHOCYTES % (AUTO) 34 % (12-44); MEAN CORPUSCULAR HEMOGLOBIN 29 PG (25-34); MEAN CORPUSCULAR HGB CONC 33 G/DL (32-36); MEAN CORPUSCULAR VOLUME 88 FL (80-99); MEAN PLATELET VOLUME 9.9 FL (7.4-10.4); MONOCYTES # (AUTO) 0.7 X 10^3 (0.0-1.0); MONOCYTES % (AUTO) 9 % (0-12); NEUTROPHILS # (AUTO) 4.8 X 10^3 (1.8-7.8); NEUTROPHILS % (AUTO) 56 % (42-75); PLATELET COUNT 208 10^3/uL (130-400); RED CELL DISTRIBUTION WIDTH 14.7 % (10.0-14.5); WHITE BLOOD COUNT 8.7 10^3/uL (4.3-11.0)
[2019-04-07 03:47] LABS: CALCIUM 8.6 MG/DL (8.5-10.1); CREATININE SERUM 1.72 MG/DL (0.60-1.30); MAGNESIUM 1.8 MG/DL (1.8-2.4); PHOSPHORUS 3.3 MG/DL (2.3-4.7); POTASSIUM 5.8 MMOL/L (3.6-5.0)
[2019-04-07] MEDS: POTASSIUM CL 10MEQ/50ML IVPB 50 ML IV SCH ×2 (04:32→05:15)
[2019-04-07] MEDS: KCL 20 MEQ TAB (K-DUR) PO SCH ×2 (04:32→05:15)
[2019-04-07] MEDS: MAGNESIUM 1 GM/100 ML IVPB 100 ML IV SCH ×2 (04:32→05:15)
[2019-04-07] MEDS: LACTATED RINGERS 1,000 ML IV SCH ×2 (06:21→14:04)
[2019-04-07] MEDS ORDERED: RIVA20TA2 PO (09:03)
[2019-04-07] MEDS ORDERED: LISI-552 PO (09:03)
[2019-04-07] MEDS ORDERED: NAPR220T66 PO (09:03)
[2019-04-07] MEDS ORDERED: METO-395 PO (09:03)
[2019-04-07] MEDS ORDERED: DILT360C36 PO (09:03)
[2019-04-07] MEDS ORDERED: PANT40TA3 PO (09:03)
--- NOTE | 2019-04-07 09:05 | History & Physical ---
HPI History of Present Illness: 48 yo male came to ER due to not feeling well- weak and SOA since Sat, worse yesterday. Mowed on Sat and thought he got overheated. Denies chest pain. Admits dizziness. Admits nausea and vomiting. Denies abdominal pain, diarrhea, fever. Source: patient Date seen by provider: Apr 07, 2019 Time Seen by Provider: 09:03 Attending Physician Gabriela Hurtado MD PCP John Ellington MD Consult Date of Admission Apr 06, 2019 at 14:00 Home Medications Home Medications Reviewed patient Home Medication Reconciliation performed by pharmacy medication reconciliations resident care technician and/or nursing. Patients Allergies have been reviewed. Allergies Coded Allergies: No Known Drug Allergies (Unverified , 01/12/13) [id number] Hx Patient Social History Alcohol Use: Occasionally Uses Recreational Drug Use: No Smoking Status: Current Everyday Smoker Recent Foreign Travel: No Contact w/other who traveled: No Recent Infectious Disease Expo: No Immunizations Up To Date Tetanus Booster (TDap): More than 5yrs Date of Pneumonia Vaccine: Mar 02, 2010 Past Medical History PMHx: Atrial fibrillation HTN PSurgHx: Cardiac ablation x 2 Linq recorder implantation Family Medical History Significant Family History: Heart Disease, CAD Over 55 Years Old, Hypertension Family History: Congenital heart disease G8 SISTER Hypertension SON Myocardial infarction 19 FATHER Review of Systems (CHC) Constitutional: see HPI EENTM: No nose congestion, No throat pain Respiratory: No cough Cardiovascular: see HPI Gastrointestinal: see HPI Genitourinary: decreased output; No dysuria Musculoskeletal: No joint pain Skin: No rash Psychiatric/Neurological: Denies Anxiety, Denies Depressed Reviewed Test Results Reviewed Test Results Lab Laboratory Tests Test 04/06/19 13:40 04/07/19 03:15 Range/Units White Blood Count 11.3 H 8.7 4.3-11.0 10^3/uL Red Blood Count 4.62 4.19 L 4.35-5.85 10^6/uL Hemoglobin 13.3 12.1 L 13.3-17.7 G/DL Hematocrit 40 37 L 40-54 % Mean Corpuscular Volume 86 88 80-99 FL Mean Corpuscular Hemoglobin 29 29 25-34 PG Mean Corpuscular Hemoglobin Concent 33 33 32-36 G/DL Red Cell Distribution Width 14.5 14.7 H 10.0-14.5 % Platelet Count 251 208 130-400 10^3/uL Mean Platelet Volume 10.1 9.9 7.4-10.4 FL Neutrophils (%) (Auto) 56 56 42-75 % Lymphocytes (%) (Auto) 32 34 12-44 % Monocytes (%) (Auto) 10 9 0-12 % Eosinophils (%) (Auto) 2 1 0-10 % Basophils (%) (Auto) 1 0 0-10 % Neutrophils # (Auto) 6.3 4.8 1.8-7.8 X 10^3 Lymphocytes # (Auto) 3.6 2.9 1.0-4.0 X 10^3 Monocytes # (Auto) 1.1 H 0.7 0.0-1.0 X 10^3 Eosinophils # (Auto) 0.3 0.1 0.0-0.3 10^3/uL Basophils # (Auto) 0.1 0.0 0.0-0.1 10^3/uL Prothrombin Time 27.4 H 22.4 H 12.2-14.7 SEC INR Comment 2.4 H 1.9 H 0.8-1.4 Activated Partial Thromboplast Time 43 H 24-35 SEC Sodium Level 133 L 136 135-145 MMOL/L Potassium Level 5.6 H 5.8 H 3.6-5.0 MMOL/L Chloride Level 108 H 111 H 98-107 MMOL/L Carbon Dioxide Level 16 L 17 L 21-32 MMOL/L Anion Gap 9 8 5-14 MMOL/L Blood Urea Nitrogen 45 H 42 H 7-18 MG/DL Creatinine 1.91 H 1.72 H 0.60-1.30 MG/DL Estimat Glomerular Filtration Rate 38 43 BUN/Creatinine Ratio 24 24 Glucose Level 164 H 79 70-105 MG/DL Calcium Level 9.3 8.6 8.5-10.1 MG/DL Corrected Calcium 9.1 8.5-10.1 MG/DL Magnesium Level 1.9 1.8 1.8-2.4 MG/DL Total Bilirubin 0.5 0.1-1.0 MG/DL Aspartate Amino Transf (AST/SGOT) 23 5-34 U/L Alanine Aminotransferase (ALT/SGPT) 24 0-55 U/L Alkaline Phosphatase 74 40-136 U/L Myoglobin 103.7 H 10.0-92.0 NG/ML Troponin I < 0.028 <0.028 NG/ML B-Type Natriuretic Peptide 203.7 H <100.0 PG/ML Total Protein 7.2 6.4-8.2 GM/DL Albumin 4.2 3.2-4.5 GM/DL Thyroid Stimulating Hormone (TSH) 1.12 0.35-4.94 UIU/ML Phosphorus Level 3.3 2.3-4.7 MG/DL Triglycerides Level 246 H <150 MG/DL Cholesterol Level 111 < 200 MG/DL LDL Cholesterol Direct 61 1-129 MG/DL VLDL Cholesterol 49 H 5-40 MG/DL HDL Cholesterol 22 L 40-60 MG/DL Physical Exam-(CHC) Physical Exam Vital Signs VS - Last 72 Hours, by Label 04/06/19 04/06/19 04/06/19 04/06/19 13:30 14:48 16:54 17:18 Temp 97.0 97.0 97.3 Pulse 20 32 Resp 16 12 B/P (MAP) 106/72 (83) 93/53 (66) Pulse Ox 100 99 O2 Delivery Room Air Room Air Room Air 04/06/19 04/06/19 04/06/19 04/06/19 17:30 17:52 17:53 19:06 Temp 96.2 Pulse 27 29 60 Resp 11 B/P (MAP) 86/63 (71) Pulse Ox 97 O2 Delivery Room Air 04/06/19 04/06/19 04/06/19 04/06/19 19:15 20:00 20:00 20:00 Temp 97.3 Pulse 59 60 Resp 14 14 B/P (MAP) 101/63 (76) 105/68 (80) Pulse Ox 96 96 98 O2 Delivery Room Air Room Air Room Air 04/06/19 04/06/19 04/06/19 04/07/19 21:00 22:00 23:00 00:00 Temp 98.3 Pulse 60 60 59 Resp 13 17 23 B/P (MAP) 126/69 (88) 136/70 (92) 132/75 (94) Pulse Ox 98 98 94 O2 Delivery Room Air Room Air Room Air Room Air 04/07/19 04/07/19 04/07/19 04/07/19 00:00 01:00 01:00 02:00 Pulse 59 59 60 60 Resp 14 16 14 B/P (MAP) 125/70 (88) 120/84 (96) 151/94 (113) Pulse Ox 94 95 94 O2 Delivery Room Air Room Air Room Air 04/07/19 04/07/19 04/07/19 04/07/19 03:00 04:00 04:00 05:00 Pulse 60 60 60 Resp 20 15 19 B/P (MAP) 125/79 (94) 148/87 (107) 106/58 (74) Pulse Ox 92 95 95 O2 Delivery Room Air Room Air Room Air Room Air 04/07/19 04/07/19 04/07/19 04/07/19 06:00 07:00 07:00 08:00 Pulse 60 59 60 Resp 16 27 B/P (MAP) 140/86 (104) 129/65 (86) Pulse Ox 97 96 O2 Delivery Room Air Room Air Room Air 04/07/19 04/07/19 04/07/19 04/07/19 08:00 08:00 09:00 10:00 Temp 97.5 Pulse 60 60 50 Resp 14 14 18 B/P (MAP) 129/89 (102) 138/83 (101) 112/57 (75) Pulse Ox 95 96 95 O2 Delivery Room Air Room Air Room Air 04/07/19 11:00 Pulse 51 Resp 10 B/P (MAP) 121/61 (81) Pulse Ox 93 O2 Delivery Room Air Capillary Refill : Less Than 3 Seconds General Appearance: WD/WN, no apparent distress Respiratory: lungs clear, normal breath sounds Cardiovascular: regular rate, rhythm, no murmur Gastrointestinal: normal bowel sounds, non tender, soft Extremities: no pedal edema Neurologic/Psychiatric: alert, normal mood/affect Skin: normal color, warm/dry Assessment/Plan Assessment/Plan Admission Dx Bradycardia Hypotension Acute renal insufficiency History of atrial fibrillation Admission Status: Inpatient Order (span 2 midnights) Reason for Inpatient Admission: Severe bradycardia and hypotension requiring pacing with JUANI requiring IV rehydration, possible need for permanent pacemaker. (1) Symptomatic bradycardia Status: Acute Assessment & Plan: Suspect related to dehydration with home medications, however, remains bradycardic this am after holding meds and rehydrating. Cardiology consulted, temporary pacer last night, anticipate permanent pacemaker today as he will need his home rate meds resumed due to his a fib. (2) Acute renal insufficiency Status: Acute Assessment & Plan: Secondary to dehydration, improving with IVF. (3) Hyperkalemia Status: Acute Assessment & Plan: Secondary to renal insufficiency, monitor, treat if increasing. (4) Hyponatremia Status: Resolved Assessment & Plan: Hypovolemic, resolved with rehydration. (5) Hypotension Status: Resolved Assessment & Plan: Secondary to dehydration in combination with home medications leading to bradycardia and hypotension. Resolved with pacing and IVF. Qualifiers: Qualified Codes: I95.89 - Other hypotension; E86.1 - Hypovolemia (6) Atrial fibrillation Status: Chronic Assessment & Plan: Will need to remain on home medications, but cannot tolerate currently due to bradycardia, Cardiology consulted, appreciate recommendations. Qualifiers: Qualified Codes: I48.2 - Chronic atrial fibrillation (7) Hypertension Status: Chronic Assessment & Plan: Currently hypo to normotensive, holding home meds. Qualifiers: Qualified Codes: I10 - Essential (primary) hypertension (8) DVT prophylaxis Status: Acute Assessment & Plan: On chronic anticoagulation for a fib, INR was 2.4 yesterday, however home meds list rivaroxaban, will clarify if he was switching to rivaroxaban. Resume anticoagulation after pacemaker when okay with Cardiology. Clinical Quality Measures AMI/AHF: ASA po Prior to arrival: No DVT/VTE Risk/Contraindication: Risk Factor Score Per Nursin RFS Level Per Nursing on Admit: 2=Moderate GABRIELA HURTADO MD Apr 07, 2019 09:05
--- NOTE | 2019-04-07 09:06 | NUR ---
PATIENT HAD A LIST OF MEDICATIONS AND STATES HE TAKES 1 DAILY OF EACH IN THE MORNING. I CALLED [facility] TO VERIFY LAST FILL DATES. [facility] FILLED: READY FOR MOLD TOOLING TECHNICIAN METOPROLOL SUCCINATE 100MG DAILY #30 03-25-19 LISINOPRIL 20MG DAILY #30 03-25-19 PROTONIX 40MG DAILY #30 03-25-19 DILTAZEM ER 24HR CAP 360MG DAILY #30 XARELTO 20MG DAILY (PROFILED, NOT PICKED UP) HE REPORTS HE TAKES ALEVE OTC PRN.
[2019-04-07] MEDS ORDERED: HEParin (CATH LAB) 1,000 ML IV ONE (10:02)
[2019-04-07] MEDS ORDERED: LIDOCAINE 1% INJ 20 ML 20 ML VIAL ONE ×2 (10:02→17:38)
[2019-04-07] MEDS ORDERED: SODIUM CHLORIDE IV ONE (10:15)
[2019-04-07] MEDS ORDERED: CEFAZOLIN IV ONE (10:15)
[2019-04-07] MEDS ORDERED: BACITRACIN INJECTION 50,000 UNIT, SODIUM CHLORIDE 0.9% IRRIGATIO 500 ML IR ONE ×2 (10:15)
[2019-04-07 10:38] LABS: INR 1.9 (0.8-1.4); PROTHROMBIN TIME PATIENT 22.4 SEC (12.2-14.7)
--- NOTE | 2019-04-07 10:50 | NUR ---
Pastoral care visit.
[2019-04-07] MEDS ORDERED: ATROPINE INJECTION 1 MG/10 ML SYR (ABBOTT) INJ ONE (13:13)
--- NOTE | 2019-04-07 13:19 | Cardiology Progress Note ---
Cardiology SOAP Progress Note Subjective: Feeling much better after the temporary pacemaker was put in. Objective: I&O/Vital Signs 04/07/19 04/07/19 04/07/19 04/07/19 02:00 03:00 04:00 04:00 Pulse 60 60 60 Resp 14 20 15 B/P (MAP) 151/94 (113) 125/79 (94) 148/87 (107) Pulse Ox 94 92 95 O2 Delivery Room Air Room Air Room Air Room Air 04/07/19 04/07/19 04/07/19 04/07/19 05:00 06:00 07:00 07:00 Pulse 60 60 59 60 Resp 19 16 27 B/P (MAP) 106/58 (74) 140/86 (104) 129/65 (86) Pulse Ox 95 97 96 O2 Delivery Room Air Room Air Room Air 04/07/19 04/07/19 04/07/19 04/07/19 08:00 08:00 08:00 09:00 Temp 97.5 Pulse 60 60 Resp 14 14 B/P (MAP) 129/89 (102) 138/83 (101) Pulse Ox 95 96 O2 Delivery Room Air Room Air Room Air 04/07/19 04/07/19 04/07/19 04/07/19 10:00 11:00 12:00 12:00 Temp 97.9 Pulse 50 51 74 Resp 18 10 16 B/P (MAP) 112/57 (75) 121/61 (81) 155/64 (94) Pulse Ox 95 93 93 O2 Delivery Room Air Room Air Room Air 04/07/19 04/07/19 12:38 13:00 Pulse 52 53 B/P (MAP) 155/84 (107) Pulse Ox 95 O2 Delivery Room Air 04/07/19 00:00 Intake Total 3960 ml Balance 3960 ml Weight (Pounds): 210 Weight (Ounces): 0.0 Weight (Calculated Kilograms): [id number] Constitutional: appears stated age, AAO x 3; No apparent distress; well- developed, well-nourished Respiratory: No accessory muscle use, No respiratory distress, No chest tender, No chest expansion is symmetric; chest is bilaterally symmetric; No lungs clear to percussion; lungs clear to auscultation; No crackles, No rhonchi, No rales, No stridor, No wheezing, No pleural rub, No other Cardiovascular: regular rate-rhythm, S1 and S2 Gastrointestional: No tender, No soft, No round, No distended, No pulsatile mass, No organomegaly, No guarding, No rebound, No tenderness, No hernia, No mass, No audible bowel sounds, No abnormal bowel sounds, No abdominal bruits, No spleenomegaly, No other Extremities: No normal range of motion, No non-tender, No normal inspection, No pedal edema, No calf tenderness, No normal capillary refill, No pelvis stable, No calf tenderness, No inflammation, No pedal edema, No slow capillary refill, No swelling, No other, No abrasion, No clubbing, No cyanosis, No ecchymosis, No laceration, No no lower extremity edema bilateral, No significant edema, No tenderness, No wound Neurologic/Psychiatric: no motor/sensory deficits, alert, normal mood/affect, oriented x 3, power is 5/5 both on sides Skin: No normal color, No warm/dry, No cyanosis, No cool, No diaphoresis, No damp, No ecchymosis, No jaundice, No mottled, No pallor, No rash, No tattoos/piercings, No ulcerations, No rash on exposed areas, No ulcerations on exposed areas, No other Results/Procedures: Labs Laboratory Tests 04/06/19 13:40: White Blood Count 11.3H, Red Blood Count 4.62, Hemoglobin 13.3, Hematocrit 40, Mean Corpuscular Volume 86, Mean Corpuscular Hemoglobin 29, Mean Corpuscular Hemoglobin Concent 33, Red Cell Distribution Width 14.5, Platelet Count 251, Mean Platelet Volume 10.1, Neutrophils (%) (Auto) 56, Lymphocytes (%) (Auto) 32, Monocytes (%) (Auto) 10, Eosinophils (%) (Auto) 2, Basophils (%) (Auto) 1, Neutrophils # (Auto) 6.3, Lymphocytes # (Auto) 3.6, Monocytes # (Auto) 1.1H, Eosinophils # (Auto) 0.3, Basophils # (Auto) 0.1, Prothrombin Time 27.4H, INR Comment 2.4H, Activated Partial Thromboplast Time 43H, Sodium Level 133L, Potassium Level 5.6H, Chloride Level 108H, Carbon Dioxide Level 16L, Anion Gap 9, Blood Urea Nitrogen 45H, Creatinine 1.91H, Estimat Glomerular Filtration Rate 38, BUN/Creatinine Ratio 24, Glucose Level 164H, Calcium Level 9.3, Corrected Calcium 9.1, Magnesium Level 1.9, Total Bilirubin 0.5, Aspartate Amino Transf (AST/SGOT) 23, Alanine Aminotransferase (ALT/SGPT) 24, Alkaline Phosphatase 74, Myoglobin 103.7H, Troponin I < 0.028, B-Type Natriuretic Peptide 203.7H, Total Protein 7.2, Albumin 4.2, Thyroid Stimulating Hormone (TSH) 1.12 04/07/19 03:15: White Blood Count 8.7, Red Blood Count 4.19L, Hemoglobin 12.1L, Hematocrit 37L, Mean Corpuscular Volume 88, Mean Corpuscular Hemoglobin 29, Mean Corpuscular Hemoglobin Concent 33, Red Cell Distribution Width 14.7H, Platelet Count 208, Mean Platelet Volume 9.9, Neutrophils (%) (Auto) 56, Lymphocytes (%) (Auto) 34, Monocytes (%) (Auto) 9, Eosinophils (%) (Auto) 1, Basophils (%) (Auto) 0, Neutrophils # (Auto) 4.8, Lymphocytes # (Auto) 2.9, Monocytes # (Auto) 0.7, Eosinophils # (Auto) 0.1, Basophils # (Auto) 0.0, Prothrombin Time 22.4H, INR Comment 1.9H, Sodium Level 136, Potassium Level 5.8H, Chloride Level 111H, Carbon Dioxide Level 17L, Anion Gap 8, Blood Urea Nitrogen 42H, Creatinine 1.72H , Estimat Glomerular Filtration Rate 43, BUN/Creatinine Ratio 24, Glucose Level 79, Calcium Level 8.6, Magnesium Level 1.8, Phosphorus Level 3.3, Triglycerides Level 246H, Cholesterol Level 111, LDL Cholesterol Direct 61, VLDL Cholesterol 49H, HDL Cholesterol 22L A/P: Assessment/Dx: severe symptomatic sinus node dysfunction, Atrial fibrillation, Acute kidney injury Plan: patient has atrial fibrillation with rapid ventricular rate history. Previous history of ablation. He is on rate controlling agents including diltiazem 360 mg and metoprolol 100 mg daily. He continues to be on oral anti-coagulation therapy. He presented with near syncope and severe bradycardia. During my evaluation his heart rate dropped to 27 bpm and the patient became dizzy. Systolic blood pressure 95 mmHg. last dose of rate controlling agents was 5 o'clock this morning. I discussed at length with the patient and due to his atrial fibrillation with rapid ventricular rate metoprolol and diltiazem are essential drug therapy. He will very likely require a permanent pacemaker. However urgently we will have to proceed with a temporary pacemaker. Informed consent was taken. half percent risk of damage to the heart or blood vessel. Temporary pacemaker was done on 04/06/2019. Currently patient's wales rhythm is sinus at 52 bpm. Patient has previously had atrial fibrillation with heart rates in the 200s therefore Cardizem and/or beta blockers are essential drug therapy. I have discussed at length with the patient and recommended dual- chamber permanent pacemaker. request echocardiogram hold oral anti-coagulation for possible PPM. Acute kidney injury, IV fluids. Thank you for your consultation. Please call me if you have any questions. Siomara Lubin MD, FACP, FACC, FSCAI, FHRS, CCDS Interventional Cardiology Cardiac Electrophysiology Vascular Medicine and Endovascular Interventions Clinical Quality Measures AMI/AHF: ASA po Prior to arrival: Janay Matta MD Apr 07, 2019 13:19
[2019-04-07] MEDS ORDERED: MIDAZOLAM 5 MG/5 ML (VERSED) VIAL ONE ×2 (15:09→16:20)
[2019-04-07] MEDS ORDERED: fentaNYL INJECTION 100 MCG/2 ML AMP ONE ×2 (15:09→16:20)
--- NOTE | 2019-04-07 15:35 | NUR ---
PT LEAVING UNIT VIA BED ACCOMPANIED BY SAFE AND VAULT SERVICE MECHANIC STAFF, WILL WAIT FOR PT TO RETURN TO UNIT
[2019-04-07] MEDS ORDERED: meTOprolol 5 MG/5 ML (LOPRESSOR) VIAL ONE ×2 (17:18→17:38)
[2019-04-07] MEDS ORDERED: NEO/POLY/BAC (NEOSPORIN) OINT 15 GM TUBE ONE (17:38)
--- NOTE | 2019-04-07 17:55 | Cardiac Procedure Note-CS/ASA ---
Pre-Procedure Note Pre-Op Procedure Note H&P Reviewed The H&P was reviewed, patient examined and no changes noted. Date H&P Reviewed: Apr 07, 2019 Time H&P Reviewed: 16:00 Conscious Sedation Pre-Proced Time 16:00 ASA Score 3 For ASA 3 and 4: Consider anesthesia and medical clearance. Also, for patients with a history of failed moderate sedation consider anesthesia. Airway Lungs Heart ASA score ASA 1: a normal healthy patient ASA 2: a patient with a mild systemic disease (mid diabetes, controlled hypertension, obesity ASA 3: a patient with a severe systemic disease that limits activity (angina, COPD, prior Myocardial infarction) ASA 4: a patient with an incapacitating disease that is a constant threat to life (CHF, renal failure) ASA 5: a moribund patient not expected to survive 24 hrs. (ruptured aneurysm) ASA 6: a declared brain- patient whose organs are being harvested. For emergent operations, add the letter E after the classification Mallampati Classification Grade 1 Sedation Plan Analgesia, Amnesia, Plan communicated to team members, Discussed options with patient/fam, Discussed risks with patient/fam The patient is an appropriate candidate to undergo the planned procedure, sedation, and anesthesia. The patient immediately re-assessed prior to indication. Janay DAVIS MD Apr 07, 2019 17:55
[2019-04-07] MEDS ORDERED: NS IV 1000 ML 1,000 ML IV SCH (18:04)
--- NOTE | 2019-04-07 18:04 | Permanent Pacemaker Implant ---
Dual Chamber Pacemaker Implant PROCEDURE PHYSICIAN: Siomara Lubin MD DUAL CHAMBER PACEMAKER IMPLANTATION: DATE OF PROCEDURE: 04/07/19 INDICATION: severe symptomatic sinus node dysfunction, tachycardia bradycardia syndrome, atrial fibrillation with RVR. PREOPERATIVE DIAGNOSIS: severe symptomatic sinus node dysfunction, tachycardia bradycardia syndrome, atrial fibrillation with RVR. POSTOPERATIVE DIAGNOSIS: successful dual-chamber permanent pacemaker implantation. HISTORY: this is a 48-year-old gentleman with history of atrial fibrillation with rapid ventricular rate. He presents with severe symptomatic bradycardia with a junctional escape rhythm of 27 BPM. the patient was dizzy even when he was lying flat. since the patient has difficult to control atrial fibrillation with rapid ventricular rate, diltiazem and/or beta blockers are essential drug therapy. Diagnoses as tachycardia-bradycardia syndrome.Dual-chamber permanent pacemaker was recommended. PROCEDURE PERFORMED: 1. Dual-chamber permanent pacemaker implantation. 2. Fluoroscopy. 3. Central venous access. 4. Left upper extremity venogram. 5. Removal of temporary pacemaker. 6. Implantable loop recorder explantation. ANESTHESIA: Local anesthesia, conscious sedation. COMPLICATIONS: None. ESTIMATED BLOOD LOSS:20 mL. SPECIMENS: None. ORAL ANTICOAGULATION: None. FLUOROSCOPY TIME: 9 minutes. FLUOROSCOPY DOSE: 46 mgy. CONTRAST DOSE: 20 ml. PROCEDURE DETAILS: The patient is a 48 male and after all of the patients questions were answered, the patient was brought to the EP Lab. The patient's left chest was prepped and draped in sterile fashion. A 2 inch horizontal incision was made 1 cm below the clavicle and dissection carried down to the pectoralis fascia. since we were not able to get access, therefore left upper extremity venogram was done. Using the modified Seldinger technique and under fluoroscopy guidance, the anterior aspect of the left axillary vein was accessed 2 times. The J wires were secured to the drapes with a mosquito clamp. A 7-Haitian sheath was introduced over one of the J-wires. The RV lead was then inserted. The RV lead was directed across the tricuspid valve to the apical septal portion of the right ventricle. The position was checked in YAKUT and KELLEY views. The screw was deployed and the lead connected to the multimedia programmer. Close sensing and pacing thresholds were obtained. Diaphragmatic pacing was ruled out. The lead was secured with 2-0 silk ties to the underlying muscle and fascia. Next, a 7-Haitian sheath was introduced through the remaining J-wire. An atrial lead was then introduced and guided to the level of the right appendage. The screw was deployed and the lead was connected to the interrogator. Good sensing was demonstrated. However capture threshold was not done due to atrial fibrillation.. Diaphragmatic pacing was ruled out. The leads were secured with 2-0 silk ties to the underlying muscle and fascia. The leads were connected to the device in a hermetic fashion. The device and leads were placed in a Tyrex pouch and then in the pocket. Tyrex was done since he had a temporary pacemaker in the RV. Aggressive irrigation with saline solution was done. The device was secured to the underlying muscle and fascia wi th a 2-0 silk tie. interrogation of the device revealed good integrity of all the leads and good connections. Under fluoroscopy guidance the temporary pacemaker was taken out. The wound was then closed using 2 layers. The first layer was interrupted 2-0 absorbable Vicryl suture. The last layer was a single subcuticular layer with 4- 0 Vicryl suture. Half inch Steri-Strips and a small dressing were then applied to the wound. we then made a small incision at the site of implantable loop recorder and explanted the device. The patient tolerated the procedure well and was returned to the recovery room in stable condition with stable vital signs. DEVICE INFORMATION: [employer] [id number] Jessica DAVENPORT, model number W3 DR 01, serial number [id number] RA LEAD: model number 170310, length 52, serial number BB [id number]. RV LEAD: model number 170664, length 58, serial number [id number]. Explanted implantable loop recorder, Linq, serial number [id number]. PER-OPERATIVE DEVICE INTERROGATION: right atrial Threshold not done due to atrial fibrillation. Impedance 456 ohms. P wave 3.1 mV. RV capture threshold 0.875 at 0.4 ms. Impedance 685 ohms. R-wave 7.3 mV. IMMEDIATE POSTOPERATIVE DEVICE INTERROGATION: Right atrial threshold not done due to atrial fibrillation. Impedance 475 ohms. P wave 1.6 mV. RV capture threshold 0.5 V at 0.4 ms. Impedance 665 ohms. R-wave 4.5 mV. PLAN: The patient transferred to the ICU. We will continue with two more doses of IV antibiotics. We will check a chest x-ray and interrogate the device in the morning. The patient will continue on oral antibiotics for 5 days. Siomara Lubin MD, FHRS, CCDS Cardiac Electrophysiology Janay LUBIN MD Apr 07, 2019 18:04
[2019-04-07] MEDS ORDERED: PATIENT MAY USE OWN MEDS, ALL PO SCH (18:15)
--- NOTE | 2019-04-07 19:24 | Diagnostic Imaging Report ---
EXAMINATION: AP upright portable chest. INDICATION: Recent pacemaker placement. COMPARISON: Multiple priors, most recent performed on 04/06/2019. FINDINGS: Interval removal of a loop recorder from the left chest and placement of a dual lead left transvenous pacemaker. Leads overlie the right atrium and right ventricle. No lead discontinuity is appreciated. The lungs are clear and the pulmonary vasculature is normal. There is unchanged mild elevation of the right hemidiaphragm. No pneumothorax or large pleural effusion. There is unchanged mild cardiomegaly. No acute osseous abnormality is appreciated. IMPRESSION: Interval removal of loop recorder and placement of left transvenous pacemaker. No lead discontinuity is appreciated. No radiographic evidence of acute chest disease. Dictated by: Dictated on workstation # [id number]
[2019-04-07] MEDS ORDERED: DILTIAZEM 240 MG (CARDIZEM CD) CAP PO NR (20:16)
[2019-04-07] MEDS: ceFAZolin INJECTION 1,000 MG in WATER (STERILE) FOR INJECTION 10 ML IV SCH (20:37)
[2019-04-08] VITALS (8 sets, daily range): BP systolic 104–152; BP diastolic 78–94
[2019-04-08] MEDS: LACTATED RINGERS 1,000 ML IV SCH ×3 (01:16→08:42)
[2019-04-08 03:29] LABS: BASOPHILS % (AUTO) 0 % (0-10); EOSINOPHILS # (AUTO) 0.1 10^3/uL (0.0-0.3); EOSINOPHILS % (AUTO) 1 % (0-10); HEMATOCRIT 40 % (40-54); HEMOGLOBIN 13.5 G/DL (13.3-17.7); LYMPHOCYTES # (AUTO) 2.1 X 10^3 (1.0-4.0); LYMPHOCYTES % (AUTO) 25 % (12-44); MEAN CORPUSCULAR HEMOGLOBIN 29 PG (25-34); MEAN CORPUSCULAR HGB CONC 34 G/DL (32-36); MEAN CORPUSCULAR VOLUME 87 FL (80-99); MEAN PLATELET VOLUME 9.9 FL (7.4-10.4); MONOCYTES # (AUTO) 0.9 X 10^3 (0.0-1.0); MONOCYTES % (AUTO) 11 % (0-12); NEUTROPHILS # (AUTO) 5.2 X 10^3 (1.8-7.8); NEUTROPHILS % (AUTO) 63 % (42-75); PLATELET COUNT 239 10^3/uL (130-400); RED CELL DISTRIBUTION WIDTH 14.2 % (10.0-14.5); WHITE BLOOD COUNT 8.3 10^3/uL (4.3-11.0)
[2019-04-08 03:48] LABS: ALANINE AMINOTRANSFERASE 195 U/L (0-55); ALKALINE PHOSPHATASE 78 U/L (40-136); BILIRUBIN,TOTAL 0.5 MG/DL (0.1-1.0); BUN/CREATININE RATIO 23; CALCIUM 9.4 MG/DL (8.5-10.1); CARBON DIOXIDE 23 MMOL/L (21-32); CHLORIDE 104 MMOL/L (98-107); CREATININE SERUM 1.18 MG/DL (0.60-1.30); GFR ESTIMATED > 60; GLUCOSE 96 MG/DL (70-105); MAGNESIUM 1.6 MG/DL (1.8-2.4); PHOSPHORUS 4.2 MG/DL (2.3-4.7); POTASSIUM 4.7 MMOL/L (3.6-5.0); SODIUM 138 MMOL/L (135-145); TOTAL PROTEIN 7.2 GM/DL (6.4-8.2)
[2019-04-08] MEDS: MAGNESIUM 1 GM/100 ML IVPB 100 ML IV SCH ×3 (04:32→07:02)
[2019-04-08] MEDS: ceFAZolin INJECTION 1,000 MG in WATER (STERILE) FOR INJECTION 10 ML IV SCH ×2 (06:27→13:18)
[2019-04-08] MEDS: POTASSIUM CL 10MEQ/50ML IVPB 50 ML IV SCH (07:02)
[2019-04-08] MEDS: KCL 20 MEQ TAB (K-DUR) PO SCH (07:02)
[2019-04-08] MEDS ORDERED: CEPH-507 PO (12:23)
--- NOTE | 2019-04-08 13:33 | NUR ---
CLEMENTE SERNA demonstrates understanding of discharge instructions and accurately returns instructions upon questioning. Copy of Post-Discharge Instructions and Medication Discharge Instructions given to PT. CLEMENTE SERNA is able to manage continuing needs after discharge. Patients belongings returned to PT. Skin dry and intact; no breakdown noted. Patient discharged from [facility] on 04/08/19 at 1333. CLEMENTE SERNA left floor via AMBULATION, accompanied by STAFF/SO.
--- NOTE | 2019-04-08 18:19 | Cardiology Progress Note ---
Cardiology SOAP Progress Note Subjective: No cardiac complaints. Objective: I&O/Vital Signs 04/08/19 04/08/19 04/08/19 04/08/19 07:00 07:00 07:45 07:58 Temp 97.4 Pulse 86 86 123 104 Resp 22 8 18 B/P (MAP) 152/86 (108) 152/86 (108) Pulse Ox 97 O2 Delivery Room Air Room Air Room Air 04/08/19 04/08/19 04/08/19 04/08/19 08:11 11:30 12:00 12:00 Temp 98.9 Pulse 86 106 Resp 12 44 B/P (MAP) 141/85 (103) Pulse Ox 97 O2 Delivery Room Air Room Air Room Air Room Air 04/08/19 04/08/19 12:59 13:33 Pulse 87 B/P (MAP) 04/08/19 00:00 Intake Total 440 ml Output Total 1850 ml Balance -1410 ml Weight (Pounds): 214 Weight (Ounces): 3.0 Weight (Calculated Kilograms): 97.764025 Constitutional: appears stated age, AAO x 3; No apparent distress; well- developed, well-nourished Respiratory: No accessory muscle use, No respiratory distress, No chest tender, No chest expansion is symmetric; chest is bilaterally symmetric; No lungs clear to percussion; lungs clear to auscultation; No crackles, No rhonchi, No rales, No stridor, No wheezing, No pleural rub, No other Cardiovascular: regular rate-rhythm, S1 and S2 Gastrointestional: No tender, No soft, No round, No distended, No pulsatile mass, No organomegaly, No guarding, No rebound, No tenderness, No hernia, No mass, No audible bowel sounds, No abnormal bowel sounds, No abdominal bruits, No spleenomegaly, No other Extremities: No normal range of motion, No non-tender, No normal inspection, No pedal edema, No calf tenderness, No normal capillary refill, No pelvis stable, No calf tenderness, No inflammation, No pedal edema, No slow capillary refill, No swelling, No other, No abrasion, No clubbing, No cyanosis, No ecchymosis, No laceration, No no lower extremity edema bilateral, No significant edema, No tenderness, No wound Neurologic/Psychiatric: no motor/sensory deficits, alert, normal mood/affect, oriented x 3, power is 5/5 both on sides Skin: No normal color, No warm/dry, No cyanosis, No cool, No diaphoresis, No damp, No ecchymosis, No jaundice, No mottled, No pallor, No rash, No tattoos/piercings, No ulcerations, No rash on exposed areas, No ulcerations on exposed areas, No other Results/Procedures: Labs Laboratory Tests 04/08/19 03:05: White Blood Count 8.3, Red Blood Count 4.66, Hemoglobin 13.5, Hematocrit 40, M naren Corpuscular Volume 87, Mean Corpuscular Hemoglobin 29, Mean Corpuscular Hemoglobin Concent 34, Red Cell Distribution Width 14.2, Platelet Count 239, Mean Platelet Volume 9.9, Neutrophils (%) (Auto) 63, Lymphocytes (%) (Auto) 25, Monocytes (%) (Auto) 11, Eosinophils (%) (Auto) 1, Basophils (%) (Auto) 0, Neutrophils # (Auto) 5.2, Lymphocytes # (Auto) 2.1, Monocytes # (Auto) 0.9, Eosinophils # (Auto) 0.1, Basophils # (Auto) 0.0, Sodium Level 138, Potassium Level 4.7, Chloride Level 104, Carbon Dioxide Level 23, Anion Gap 11, Blood Urea Nitrogen 27H, Creatinine 1.18, Estimat Glomerular Filtration Rate > 60, BUN/ Creatinine Ratio 23, Glucose Level 96, Calcium Level 9.4, Corrected Calcium 9.4, Phosphorus Level 4.2, Magnesium Level 1.6L, Total Bilirubin 0.5, Aspartate Amino Transf (AST/SGOT) 154H, Alanine Aminotransferase (ALT/SGPT) 195H, Alkaline Phosphatase 78, Total Protein 7.2, Albumin 4.0 Microbiology 04/06/19 MRSA Screen - Final, Complete MRSA not isolated A/P: Assessment/Dx: severe symptomatic sinus node dysfunction, Atrial fibrillation, Acute kidney injury Plan: patient has atrial fibrillation with rapid ventricular rate history. Previous history of ablation. He is on rate controlling agents including diltiazem 360 mg and metoprolol 100 mg daily. He continues to be on oral anti-coagulation therapy. He presented with near syncope and severe bradycardia. During my evaluation his heart rate dropped to 27 bpm and the patient became dizzy. Systolic blood pressure 95 mmHg. last dose of rate controlling agents was 5 o'clock this morning. I discussed at length with the patient and due to his atrial fibrillation with rapid ventricular rate metoprolol and diltiazem are essential drug therapy. He will very likely require a permanent pacemaker. However urgently we will have to proceed with a temporary pacemaker. Informed consent was taken. half percent risk of damage to the heart or blood vessel. Temporary pacemaker was done on 04/06/2019. Currently patient's [place] rhythm is sinus at 52 bpm. Patient has previously had atrial fibrillation with heart rates in the 200s therefore Cardizem and/or beta blockers are essential drug therapy. I have discussed at length with the patient and recommended dual- chamber permanent pacemaker. Dual-chamber permanent pacemaker was done on 04/07/2019. Normal device interrogation today. Patient will be discharged to follow-up in the clinic for wound check in one week and device interrogation in one month. Keflex 500 mg 3 times a day for the next 5 days. request echocardiogram hold oral anti-coagulation for possible PPM. Acute kidney injury, IV fluids. Thank you for your consultation. Please call me if you have any questions. Siomara Lubin MD, FACP, FACC, FSCAI, FHRS, CCDS Interventional Cardiology Cardiac Electrophysiology Vascular Medicine and Endovascular Interventions Clinical Quality Measures AMI/AHF: ASA po Prior to arrival: Janay Matta MD Apr 08, 2019 18:19
--- NOTE | 2019-04-08 21:08 | Discharge Summary ---
Diagnosis/Chief Complaint Date of Admission Apr 06, 2019 at 14:00 Date of Discharge Apr 08, 2019 at 13:33 Admission Diagnosis Admission Diagnosis See problem list Discharge Diagnosis See problem list Problems/Diagnosis: (1) Symptomatic bradycardia Assessment & Plan: Suspect related to dehydration with home medications, however, remains bradycardic this am after holding meds and rehydrating. Cardiology consulted, temporary pacer after admission, permanent pacemaker placed before d/c as he will need his home rate meds resumed due to his a fib. Status: Acute (2) Acute renal insufficiency Assessment & Plan: Secondary to dehydration, resolved with IVF. Status: Resolved Resolution Date/Time: 04/08/19 @ 21:04 (3) Elevated LFTs Assessment & Plan: On day of d/c LFTs up, unclear etiology, recommend recheck outpatient. Status: Acute (4) Hyperkalemia Assessment & Plan: Secondary to renal insufficiency, monitored and resolved. Status: Resolved Resolution Date/Time: 04/08/19 @ 21:05 (5) Hyponatremia Assessment & Plan: Hypovolemic, resolved with rehydration. Status: Resolved Resolution Date/Time: 04/07/19 @ 11:19 (6) Hypotension Assessment & Plan: Secondary to dehydration in combination with home medications leading to bradycardia and hypotension. Resolved with pacing and IVF. Qualifiers: Qualified Codes: I95.89 - Other hypotension; E86.1 - Hypovolemia Status: Resolved Resolution Date/Time: 04/07/19 @ 11:17 (7) Atrial fibrillation Assessment & Plan: Will need to remain on home medications, but cannot tolerate currently due to bradycardia, Cardiology consulted, appreciate recommendations. Qualifiers: Qualified Codes: I48.2 - Chronic atrial fibrillation Status: Chronic (8) Hypertension Qualifiers: Qualified Codes: I10 - Essential (primary) hypertension Status: Chronic Chief Complaint/HPI Chief Complaint/HPI 48 yo male came to ER due to not feeling well- weak and SOA since Sat, worse yesterday. Mowed on Sat and thought he got overheated. Denies chest pain. Admits dizziness. Admits nausea and vomiting. Denies abdominal pain, diarrhea, fever. Discharge Summary-Simple/Stand Consultations Discharge Physical Examination Allergies: Coded Allergies: No Known Drug Allergies (Unverified , 01/12/13) Vitals & I&Os Vital Sign - Last 12Hours Date Time Temp Pulse Resp B/P (MAP) Pulse Ox O2 Delivery O2 Flow Rate FiO2 04/08/19 13:33 04/08/19 12:59 87 04/08/19 12:00 44 Room Air 04/08/19 12:00 98.9 97 Intake and Output 04/08/19 00:00 Intake Total 440 ml Output Total 1850 ml Balance -1410 ml General Appearance: Alert, No Acute Distress Respiratory: Clear to Auscultation, Normal Air Movement Cardiovascular: Regular Rate, Other (irregularly irregular) Neuro: Normal Speech Psych/Mental Status: Mood NL Hospital Course See final discharge diagnosis. Labs Laboratory Tests Test 04/07/19 03:15 04/08/19 03:05 Range/Units White Blood Count 8.7 8.3 4.3-11.0 10^3/uL Red Blood Count 4.19 L 4.66 4.35-5.85 10^6/uL Hemoglobin 12.1 L 13.5 13.3-17.7 G/DL Hematocrit 37 L 40 40-54 % Mean Corpuscular Volume 88 87 80-99 FL Mean Corpuscular Hemoglobin 29 29 25-34 PG Mean Corpuscular Hemoglobin Concent 33 34 32-36 G/DL Red Cell Distribution Width 14.7 H 14.2 10.0-14.5 % Platelet Count 208 239 130-400 10^3/uL Mean Platelet Volume 9.9 9.9 7.4-10.4 FL Neutrophils (%) (Auto) 56 63 42-75 % Lymphocytes (%) (Auto) 34 25 12-44 % Monocytes (%) (Auto) 9 11 0-12 % Eosinophils (%) (Auto) 1 1 0-10 % Basophils (%) (Auto) 0 0 0-10 % Neutrophils # (Auto) 4.8 5.2 1.8-7.8 X 10^3 Lymphocytes # (Auto) 2.9 2.1 1.0-4.0 X 10^3 Monocytes # (Auto) 0.7 0.9 0.0-1.0 X 10^3 Eosinophils # (Auto) 0.1 0.1 0.0-0.3 10^3/uL Basophils # (Auto) 0.0 0.0 0.0-0.1 10^3/uL Prothrombin Time 22.4 H 12.2-14.7 SEC INR Comment 1.9 H 0.8-1.4 Sodium Level 136 138 135-145 MMOL/L Potassium Level 5.8 H 4.7 3.6-5.0 MMOL/L Chloride Level 111 H 104 98-107 MMOL/L Carbon Dioxide Level 17 L 23 21-32 MMOL/L Anion Gap 8 11 5-14 MMOL/L Blood Urea Nitrogen 42 H 27 H 7-18 MG/DL Creatinine 1.72 H 1.18 0.60-1.30 MG/DL Estimat Glomerular Filtration Rate 43 > 60 BUN/Creatinine Ratio 24 23 Glucose Level 79 96 70-105 MG/DL Calcium Level 8.6 9.4 8.5-10.1 MG/DL Phosphorus Level 3.3 4.2 2.3-4.7 MG/DL Magnesium Level 1.8 1.6 L 1.8-2.4 MG/DL Triglycerides Level 246 H <150 MG/DL Cholesterol Level 111 < 200 MG/DL LDL Cholesterol Direct 61 1-129 MG/DL VLDL Cholesterol 49 H 5-40 MG/DL HDL Cholesterol 22 L 40-60 MG/DL Corrected Calcium 9.4 8.5-10.1 MG/DL Total Bilirubin 0.5 0.1-1.0 MG/DL Aspartate Amino Transf (AST/SGOT) 154 H 5-34 U/L Alanine Aminotransferase (ALT/SGPT) 195 H 0-55 U/L Alkaline Phosphatase 78 40-136 U/L Total Protein 7.2 6.4-8.2 GM/DL Albumin 4.0 3.2-4.5 GM/DL Discharge Instructions to patient/family Please see electronic discharge instructions given to patient. Discharge Medications Reviewed and agree with Discharge Medication list on patient's Discharge Instruction sheet Clinical Quality Measures AMI/AHF: ASA po Prior to arrival: No DVT/VTE Risk/Contraindication: Risk Factor Score Per Nursin RFS Level Per Nursing on Admit: 2=Moderate Copy Copies To 1: JOSELIN Melton BETHANY N MD Apr 08, 2019 21:08
== END 2019-04-08 13:33 | disposition home or self-care (01) | DRG 243 ==
LOC: EDUNIT# 13:30 → ER 13:31 → ICU 14:00
PROVIDERS: ADMIT Family Medicine; ATTEND Family Medicine
PROC: 0JH632Z Insertion of Monitoring Device into Chest Subcutaneous Tissue and Fascia, Percutaneous Approach (ICD-10-PCS; 2019-04-06)
PROC: 0JH606Z Insertion of Pacemaker, Dual Chamber into Chest Subcutaneous Tissue and Fascia, Open Approach (ICD-10-PCS; principal; 2019-04-07)
PROC: 02H63JZ Insertion of Pacemaker Lead into Right Atrium, Percutaneous Approach (ICD-10-PCS; 2019-04-07)
PROC: 02HK3JZ Insertion of Pacemaker Lead into Right Ventricle, Percutaneous Approach (ICD-10-PCS; 2019-04-07)
DX: I49.5 Sick sinus syndrome (principal); R00.1 Bradycardia, unspecified; I48.2 Chronic atrial fibrillation; E87.1 Hypo-osmolality and hyponatremia; N17.9 Acute kidney failure, unspecified; E86.0 Dehydration; R11.10 Vomiting, unspecified; E87.5 Hyperkalemia; I95.89 Other hypotension; I10 Essential (primary) hypertension; F17.200 Nicotine dependence, unspecified, uncomplicated; R79.89 Other specified abnormal findings of blood chemistry; Z79.01 Long term (current) use of anticoagulants
CPT/HCPCS: 33208; 33210; 33286; 36415; 71045; 75820; 80048; 80053; 80061; 83735; 83874; 83880; 84100; 84443; 84484; 85025; 85027; 85610; 85730; 87081; 93005; 93041; 96361; 96374; 96375

== ENCOUNTER 2019-08-07 17:39 | Observation (INO) | payer BC ==
[~2019-08-07] VITALS: Ht 185.5 cm; Wt 96.4 kg
[2019-08-07] VITALS (8 sets, daily range): BP systolic 132–151; BP diastolic 85–94
[~2019-08-07 17:39] MED LIST changes: +CEPH-507 PO; +DILT360C36 PO; +LISI-552 PO; +METO-395 PO; +NAPR220T66 PO; +PANT40TA3 PO
[2019-08-07 18:01] LABS: BASOPHILS % (AUTO) 0 % (0-10); EOSINOPHILS # (AUTO) 0.2 10^3/uL (0.0-0.3); EOSINOPHILS % (AUTO) 1 % (0-10); HEMATOCRIT 49 % (40-54); HEMOGLOBIN 16.7 G/DL (13.3-17.7); LYMPHOCYTES # (AUTO) 2.8 X 10^3 (1.0-4.0); LYMPHOCYTES % (AUTO) 25 % (12-44); MEAN CORPUSCULAR HEMOGLOBIN 29 PG (25-34); MEAN CORPUSCULAR HGB CONC 34 G/DL (32-36); MEAN CORPUSCULAR VOLUME 86 FL (80-99); MEAN PLATELET VOLUME 10.2 FL (7.4-10.4); MONOCYTES # (AUTO) 0.6 X 10^3 (0.0-1.0); MONOCYTES % (AUTO) 5 % (0-12); NEUTROPHILS # (AUTO) 7.8 X 10^3 (1.8-7.8); NEUTROPHILS % (AUTO) 69 % (42-75); PLATELET COUNT 281 10^3/uL (130-400); RED CELL DISTRIBUTION WIDTH 13.3 % (10.0-14.5); WHITE BLOOD COUNT 11.4 10^3/uL (4.3-11.0)
--- NOTE | 2019-08-07 18:01 | ED Cardiac General ---
History of Present Illness General Chief Complaint: Chest Pain Stated Complaint: L ARM NUMBNESS - SOA Source: patient History of Present Illness Date Seen by Provider: Aug 07, 2019 Time Seen by Provider: 17:42 Initial Comments PT ARRIVES VIA POV FROM HOME STATES THAT EARLY THIS AFTERNOON, HE BEGAN TO HAVE MID CHEST PAIN--COMES AND GOES, IS SHARP AT TIMES. IS NOT PRESENT NOW HAS ALSO HAD SHORTNESS OF BREATH SINCE EARLY AFTER NOON PT STATES HE TOOK A HOT SHOWER THIS AFTERNOON, AND FELL GETTING OUT OF THE SHOWER, AND HIS LEFT ARM BEGAN TO GO NUMB AND TINGLY, BUT DID NOT LOSE THE USE OF HIS ARM. STATES SYMPTOMS IN LEFT ARM ARE BETTER, JUST HIS FINGERTIPS FEEL A LITTLE TINGLY NOW STATES HE DOES NOT KNOW WHAT MADE HIM FALL--IF HE SLIPPED OR IF HE GOT DIZZY. PT ADAMANTLY DENIES ANY SYNCOPE PT ADAMANTLY DENIES ANY NUMBNESS/TINGLING OR LOSS OF MOVEMENT IN HIS LEGS PT DENIES HITTING HIS HEAD OR HAVING ANY INJURY FROM THE FALL. NO SWEATS NO PALPITATIONS NO NAUSEA/VOMITING NO SWELLING IN LEGS/ FEET OR PAIN IN CALVES NO COUGH, FEVER OR RECENT ILLNESS PT HAS CHRONIC ATRIAL FIBRILLATION AND IS ON XARELTO. DENIES ANY MISSED DOSES OF MEDICATIONS PT TAKES LISINOPRIL FOR HTN PT DOES NOT TAKE ASPIRIN PT HAD PACEMAKER PLACED IN MARCH PT CONTINUES TO SMOKE 1/2 PPD PT DENIES ANY HISTORY OF HI, AND DENIES ANY HX OF COPD OR RESPIRATORY PROBLEMS DENIES ANY HISTORY OF SIMILAR EPISODES [facility] EXCEL SPECIALIST: DR LUJAN Allergies and Home Medications Allergies Coded Allergies: No Known Drug Allergies (Unverified , 01/12/13) Home Medications Cephalexin 500 Mg Capsule, 500 MG PO TID Prescribed by: BRENDA CAZARES on 04/08/19 1223 Diltiazem HCl 360 Mg Cap.er.24h, 360 MG PO DAILY, (Reported) Lisinopril 20 Mg Tablet, 20 MG PO DAILY, (Reported) Metoprolol Succinate 100 Mg Tab.er.24h, 100 MG PO DAILY, (Reported) Naproxen Sodium 220 Mg Tablet, 440 MG PO Q8H PRN for PAIN-MILD, (Reported) Pantoprazole Sodium 40 Mg Tablet.dr, 40 MG PO DAILY, (Reported) Rivaroxaban 20 Mg Tablet, 20 MG PO DAILY, (Reported) Patient Home Medication List Home Medication List Reviewed: Yes Review of Systems Review of Systems Constitutional: see HPI EENTM: No Symptoms Reported Respiratory: See HPI, Shortness of Air Cardiovascular: See HPI, Chest Pain; Denies Edema Gastrointestinal: No Symptoms Reported; Denies Abdominal Pain, Denies Nausea, Denies Vomiting Genitourinary: No Symptoms Reported Musculoskeletal: no symptoms reported Skin: no symptoms reported Psychiatric/Neurological: See HPI; Denies Headache Endocrine: No Symptoms Reported Hematologic/Lymphatic: No Symptoms Reported Past Mjiyyqb-Mcgdas-Jafhgy Hx Patient Social History Alcohol Use: Occasionally Uses Number of Drinks Today: 0 Recreational Drug Use: No Smoking Status: Current Everyday Smoker (1/2 PPD) Type Used: Cigarettes (/2 PPD) 2nd Hand Smoke Exposure: Yes Recent Foreign Travel: No Contact w/Someone Who Travel: No Physical Abuse: No Sexual Abuse: No Immunizations Up To Date Tetanus Booster (TDap): More than 5yrs Date of Pneumonia Vaccine: Mar 02, 2010 Past Medical History Surgeries: Yes (Cardiac Ablation x2, Pacemaker; LINQ RECORDER DEVICE IMPLANTED; DINO) Cardiac, Pacemaker Respiratory: No Cardiac: Yes (Pacemaker --SYMPTOMATIC BRADYCARDIA ; CARDIAC ABLATION X 2--FOR SVT AND AFIB; LINQ RECORDER DEVICE IMPLANTED; DINO) Atrial Fibrillation, Hypertension, Irregular Heartbeat Neurological: No Reproductive Disorders: No HIV/AIDS: No Genitourinary: No Gastrointestinal: No Musculoskeletal: Yes Gout Endocrine: No HEENT: No Cancer: No Psychosocial: No Integumentary: No Blood Disorders: No Adverse Reaction/Blood Tranf: No (Never has had a transfusion) Family Medical History Congenital heart disease G8 SISTER Hypertension SON Myocardial infarction 19 FATHER Heart Disease, CAD Over 55 Years Old, Hypertension Physical Exam Vital Signs Vital Signs - First Documented 08/07/19 17:39 Temp 36.6 Pulse 71 Resp 18 B/P (MAP) 153/84 (107) Pulse Ox 98 O2 Delivery Room Air Capillary Refill : NONE Height, Weight, BMI Height: 6'1.00" Weight: 214lbs. 3.0oz. 97.214437iv; 28.8 BMI Method:Stated General Appearance: No Apparent Distress, WD/WN, Other (STRONG ODOR OF CIGARETTES;) HEENT: PERRL/EOMI Neck: Full Range of Motion, Normal Inspection, Non Tender, Supple; No Carotid Bruit, No JVD Respiratory: Chest Non Tender, Normal Breath Sounds, No Accessory Muscle Use, No Respiratory Distress Cardiovascular: No Edema, No JVD, No Murmur, Normal Peripheral Pulses, Irregularly Irregular Gastrointestinal: Non Tender, Soft Extremity: Normal Capillary Refill, Normal Inspection, Normal Range of Motion, Non Tender, No Calf Tenderness, No Pedal Edema Neurologic/Psychiatric: Alert, Oriented x3, No Motor/Sensory Deficits, Normal Mood/Affect, therapy administrative assistant II-XII Norm as Tested; No Abnormal Cerebellar Tests Skin: Normal Color, Warm/Dry Progress/Results/Core Measures Results/Orders Lab Results Laboratory Tests Test 08/07/19 17:43 Range/Units White Blood Count 11.4 H 4.3-11.0 10^3/uL Red Blood Count 5.68 4.35-5.85 10^6/uL Hemoglobin 16.7 13.3-17.7 G/DL Hematocrit 49 40-54 % Mean Corpuscular Volume 86 80-99 FL Mean Corpuscular Hemoglobin 29 25-34 PG Mean Corpuscular Hemoglobin Concent 34 32-36 G/DL Red Cell Distribution Width 13.3 10.0-14.5 % Platelet Count 281 130-400 10^3/uL Mean Platelet Volume 10.2 7.4-10.4 FL Neutrophils (%) (Auto) 69 42-75 % Lymphocytes (%) (Auto) 25 12-44 % Monocytes (%) (Auto) 5 0-12 % Eosinophils (%) (Auto) 1 0-10 % Basophils (%) (Auto) 0 0-10 % Neutrophils # (Auto) 7.8 1.8-7.8 X 10^3 Lymphocytes # (Auto) 2.8 1.0-4.0 X 10^3 Monocytes # (Auto) 0.6 0.0-1.0 X 10^3 Eosinophils # (Auto) 0.2 0.0-0.3 10^3/uL Basophils # (Auto) 0.0 0.0-0.1 10^3/uL Prothrombin Time 23.4 H 12.2-14.7 SEC INR Comment 2.0 H 0.8-1.4 Activated Partial Thromboplast Time 41 H 24-35 SEC Sodium Level 140 135-145 MMOL/L Potassium Level 4.2 3.6-5.0 MMOL/L Chloride Level 103 98-107 MMOL/L Carbon Dioxide Level 21 21-32 MMOL/L Anion Gap 16 H 5-14 MMOL/L Blood Urea Nitrogen 15 7-18 MG/DL Creatinine 1.04 0.60-1.30 MG/DL Estimat Glomerular Filtration Rate > 60 BUN/Creatinine Ratio 14 Glucose Level 248 H 70-105 MG/DL Calcium Level 9.7 8.5-10.1 MG/DL Corrected Calcium 8.5-10.1 MG/DL Magnesium Level 2.1 1.6-2.4 MG/DL Total Bilirubin 0.5 0.1-1.0 MG/DL Aspartate Amino Transf (AST/SGOT) 27 5-34 U/L Alanine Aminotransferase (ALT/SGPT) 33 0-55 U/L Alkaline Phosphatase 109 40-136 U/L Total Creatine Kinase 97 30-200 U/L Creatine Kinase MB 1.5 <6.6 NG/ML Myoglobin 33.6 10.0-92.0 NG/ML Troponin I < 0.028 <0.028 NG/ML B-Type Natriuretic Peptide 90.3 <100.0 PG/ML Total Protein 8.8 H 6.4-8.2 GM/DL Albumin 4.7 H 3.2-4.5 GM/DL Amylase Level 50 25-125 U/L Lipase 43 8-78 U/L Serum Alcohol < 10 <10 MG/DL My Orders Orders - WHITNEY ALFARO DO Cbc With Automated Diff (08/07/19 17:45) Magnesium (08/07/19 17:45) Chest 1 View, Ap/Pa Only (08/07/19 17:45) Ekg Tracing (08/07/19 17:45) Comprehensive Metabolic Panel (08/07/19 17:45) Myoglobin Serum (08/07/19 17:45) Protime With Inr (08/07/19 17:45) Partial Thromboplastin Time (08/07/19 17:45) O2 (08/07/19 17:45) Monitor-Rhythm Ecg Trace Only (08/07/19 17:45) Lipid Panel (08/08/19 06:00) Ed Iv/Invasive Line Start (08/07/19 17:45) Creatine Kinase (08/07/19 17:45) Creatine Kinase Mb (08/07/19 17:45) Lipase (08/07/19 17:45) Amylase (08/07/19 17:45) BNP (08/07/19 17:45) Troponin I (08/07/19 17:45) Ct Head Wo-R/O Stroke (08/07/19 17:45) Alcohol (08/07/19 17:45) Ct Angio Chest W (08/07/19 19:01) Ct Angio Head/Neck (08/07/19 19:01) Iohexol Injection (Omnipaque 350 Mg/Ml 1 (08/07/19 19:15) Received Contrast (Hold Metformin- Contr (08/07/19 19:15) Sodium Chloride Flush (Catheter Flush Sy (08/07/19 19:15) Ns (Ivpb) (Sodium Chloride 0.9% Ivpb Bag (08/07/19 19:15) Ed Iv/Invasive Line Start (08/07/19 20:08) Ns Iv 1000 Ml (Sodium Chloride 0.9%) (08/07/19 20:08) Medications Given in ED Current Medications Medications Dose Ordered Sig/Aisha Route Start Time Stop Time Status Last Admin Dose Admin Iohexol 150 ml ONCE ONCE IV 08/07/19 19:15 08/07/19 19:16 DC 08/07/19 19:30 160 ML Sodium Chloride 10 ml NEEDED PRN IV 08/07/19 19:15 08/07/19 19:32 10 ML Sodium Chloride 100 ml ONCE ONCE IV 08/07/19 19:15 08/07/19 19:16 DC 08/07/19 19:30 120 ML Sodium Chloride 1,000 ml @ 0 mls/hr Q0M ONCE IV 08/07/19 20:08 08/07/19 20:10 DC 08/07/19 20:16 0 MLS/HR Vital Signs/I&O 08/07/19 08/07/19 17:39 17:48 Temp 36.6 Pulse 71 Resp 18 B/P (MAP) 153/84 (107) Pulse Ox 98 O2 Delivery Room Air Room Air Progress Progress Note : Progress Note NO CHEST PAIN OR SHORTNESS OF BREATH DURING ER STAY DOES NOT HAVE NUMBNESS IN LEFT ARM, BUT FINGERTIPS OF LEFT HAND STILL FEEL TINGLY Initial ECG Impression Date: Aug 07, 2019 Initial ECG Impression Time: 17:47 Initial ECG Rate: 69 Initial ECG Comparisson: Changed (FROM PRE-PACEMAKER) Comment ATRIAL FIB/FLUTTER WITH VENTRICULAR PACED COMPLEXES. ST DEPRESSION/T-WAVE INVERSION ANTERIOR/LATERALLY Diagnostic Imaging Comments CXR--NO ACUTE PROCESS, RIGHT CAROTID CALCIFICATIONS CT HEAD--ABNORMAL ATTENUATION RIGHT PERIVENTRICULAR/LACUNAR AREA, UNDETERMINED AGE. PER RADIOLOGIST REPORTS AT 1857 CT ANGIOGRAM HEAD/NECK--PREVIOUSLY NOTED FOCAL AREA OF LOW ATTENUATION IN RIGHT PERIVENTRICULAR AREA IS NON DILATED AND NON DIAGNOSTIC ON THIS EXAM. VERTEBRAL ARTERIES VERY SMALL IN CALIBER AND TERMINATE BEFORE SUPPLYING BLOOD FLOW TO BASILAR ARTERIES, AND BASILAR ARTERIES NOT CONTRAST OPACIFIED. OTHER AREAS OF VASCULAR CALCIFICATION--NO CRITICAL STENOSIS--PER RADIOLOGIST REPORT AT 2009 CT CHEST ANGIOGRAM--NO P.E. OR OTHER ACUTE PROCESS--PER RADIOLOGIST REPORT AT 2009 Reviewed: Reviewed by Me Departure Communication (Admissions) 2018--SPOKE WITH DR. SAHNI, ACCEPTS PT FOR ADMIT Impression Primary Impression: Chest pain Additional Impressions: Shortness of breath Numbness and tingling in left arm ASVD (arteriosclerotic vascular disease) Chronic atrial fibrillation Cerebrovascular disease Hyperglycemia Disposition: 09 ADMITTED INPATIENT Condition: Stable Admissions Decision to Admit Reason: Admit from ER (General) Decision to Admit/Date: Aug 07, 2019 Time/Decision to Admit Time: 20:20 Departure-Patient Inst. Referrals: CARLOS SANTOS MD (PCP) Primary Care Physician KRYSTEN BEST (Family) Primary Care Physician WHITNEY ALFARO DO Aug 07, 2019 18:00 POS
[2019-08-07 18:12] LABS: PROTHROMBIN TIME PATIENT 23.4 SEC (12.2-14.7)
[2019-08-07 18:20] LABS: ALANINE AMINOTRANSFERASE 33 U/L (0-55); ALBUMIN 4.7 GM/DL (3.2-4.5); ALKALINE PHOSPHATASE 109 U/L (40-136); AMYLASE 50 U/L (25-125); BILIRUBIN,TOTAL 0.5 MG/DL (0.1-1.0); BUN/CREATININE RATIO 14; CALCIUM 9.7 MG/DL (8.5-10.1); CARBON DIOXIDE 21 MMOL/L (21-32); CHLORIDE 103 MMOL/L (98-107); CREATINE KINASE 97 U/L (30-200); CREATININE SERUM 1.04 MG/DL (0.60-1.30); GFR ESTIMATED > 60; GLUCOSE 248 MG/DL (70-105); LIPASE 43 U/L (8-78); MAGNESIUM 2.1 MG/DL (1.6-2.4); POTASSIUM 4.2 MMOL/L (3.6-5.0); SODIUM 140 MMOL/L (135-145); TOTAL PROTEIN 8.8 GM/DL (6.4-8.2)
[2019-08-07 18:27] LABS: CREATINE KINASE MB 1.5 NG/ML (<6.6)
--- NOTE | 2019-08-07 18:32 | Diagnostic Imaging Report ---
EXAMINATION: Chest radiograph, portable AP view. DATE: 08/07/2019 6:23 PM hours. INDICATION: 49-year-old male, chest pain. COMPARISON: April 07, 2019. FINDINGS: There is a left-sided cardiac assist device with leads. The leads appear intact. Heart size and mediastinal contours are unremarkable. There is no identified pneumothorax. There is no large pleural effusion. There is no identified focal airspace consolidation. There are probable right carotid vascular calcifications. IMPRESSION: 1. No identified acute cardiopulmonary abnormality. 2. Probable right carotid vascular calcifications. Dictated by: Dictated on workstation # [id number]
--- NOTE | 2019-08-07 18:44 | Diagnostic Imaging Report ---
PROCEDURE: CT head wo r/o stroke. TECHNIQUE: Multiple contiguous axial images were obtained through the brain without the use of intravenous contrast. Auto Exposure Controls were utilized during the CT exam to meet ALARA standards for radiation dose reduction. DATE: August 07, 2019. COMPARISON: None. INDICATION: 49-year-old male, chest pain. Left arm numbness. Fall. FINDINGS: There is a focal area of very low attenuation in the right periventricular white matter measuring 7 mm in size on axial image 17 which is very near CSF in attenuation. The ventricles and cerebral spinal fluid spaces are of normal size and configuration for the patient's age. There is no mass effect or midline shift. There is no acute intracranial hemorrhage. There is no abnormal extra-axial fluid collection. The visualized portions of the paranasal sinuses, mastoid air cells and middle ears are well aerated. IMPRESSION: 1. Focal area of very low attenuation in the right periventricular white matter which most likely relates to a remote prior lacunar infarct; however, if there are symptoms referrable to this distribution, dedicated MRI brain without and with intravenous contrast is recommended for further evaluation, especially if comparison imaging is not available to demonstrate stability. Dictated by: Dictated on workstation # [id number]
[2019-08-07] MEDS ORDERED: IOHEXOL 350 MG/ML 150 ML (OMNIPAQUE 350) VIAL IV ONE (19:15)
[2019-08-07] MEDS ORDERED: HOLD METFORMIN - RECEIVED CONTRAST 20 ML VIAL IV SCH (19:15)
[2019-08-07] MEDS ORDERED: NS 100 ML (IVPB) BAG IV ONE (19:15)
[2019-08-07] MEDS ORDERED: CATHETER FLUSH 10 ML SYR IV PRN ×2 (19:15→21:30)
--- NOTE | 2019-08-07 19:57 | Diagnostic Imaging Report ---
PROCEDURE: CT angiography of the chest with contrast. TECHNIQUE: Multiple contiguous axial images were obtained through the chest after uneventful bolus administration of intravenous contrast. 3D reconstructed CTA MIP acquisitions were also performed. Auto Exposure Controls were utilized during the CT exam to meet ALARA standards for radiation dose reduction. DATE: August 07, 2019. COMPARISON: Chest radiograph August 07, 2019. INDICATION: 49-year-old male, chest pain and left arm numbness. FINDINGS: There is no identified pulmonary nodule or lung mass. There is no focal airspace consolidation. There is no pneumothorax. There is no pleural effusion. The central airways are patent. There is no identified pulmonary embolus. The main pulmonary artery is normal in caliber. The heart is not enlarged. There are coronary artery calcifications and additional areas of atherosclerotic disease. There is no pericardial effusion. There is no identified abnormally enlarged mediastinal, hilar, or axillary lymph node which meets CT size criteria for adenopathy. There is a 9 mm low-attenuation lesion in the left kidney on axial image 169, too small to definitively characterize although they are most likely a benign left renal cyst. Additional imaging evaluation of the upper abdomen is unremarkable. There is no identified acute bony abnormality. There are degenerative changes of the spine. IMPRESSION: CT Chest. 1. Coronary artery calcifications and additional areas of atherosclerotic disease. 2. No identified pulmonary embolus or other acute cardiopulmonary abnormality. Dictated by: Dictated on workstation # [id number]
--- NOTE | 2019-08-07 20:03 | Diagnostic Imaging Report ---
PROCEDURE: CT angiography of the head and CT angiography of the neck with and without contrast. TECHNIQUE: Contiguous noncontrast images were obtained from the skull base through the vertex. After intravenous contrast administration, helical CT angiography of the neck was performed. Source data was reformatted into 3D MIP projections. Delayed post contrast acquisition was also obtained. Auto Exposure Controls were utilized during the CT exam to meet ALARA standards for radiation dose reduction. DATE: August 07, 2019. INDICATION: 49-year-old male, chest pain and left arm numbness. COMPARISON: CT head without contrast August 07, 2019. FINDINGS: The left common carotid artery is patent. There is calcified plaque at the left carotid bifurcation. The left internal carotid artery also contains plaque at its cavernous segment. There is approximately 50% stenosis of the cavernous segment of the left internal carotid artery perhaps best illustrated on axial image 414. The left middle cerebral artery is patent. The left anterior cerebral artery is patent. The right anterior cerebral artery is patent. The right middle cerebral artery is patent. There are calcifications of the cavernous segment of the right internal carotid artery. There is calcified plaque involving the proximal segment of the right internal carotid artery. There is no high-grade right internal carotid artery stenosis. There is calcified plaque involving the distal aspect of the right common carotid artery. The right common carotid artery is patent. There is conventional origin of the left vertebral artery. The left vertebral artery terminates before supplying blood flow to the basilar artery. There is very little contrast opacification of the basilar artery which is very small in caliber. The proximal segment of the basilar artery is not contrast opacified. There are patent bilateral posterior communicating arteries predominantly supplying blood flow to the right and left posterior cerebral arteries which are patent. The right and left posterior inferior cerebellar arteries are patent. The right vertebral artery terminates before supplying blood flow to the basilar artery. The right vertebral artery is patent more proximally. The right vertebral artery is conventional in origin. The previously noted focal area of low-attenuation in the right periventricular white matter is nondilated and diagnostic assessment on the basis of this exam. There are additional areas of atherosclerotic disease. The visualized portions of the lungs are clear. Please see separately dictated CT chest report for additional evaluation of the lungs. There is prominent mucosal thickening of the left maxillary sinus. There are degenerative changes of the cervical spine. IMPRESSION: 1. Approximately 50% stenosis involving the cavernous segment of the left internal carotid artery. 2. Atherosclerotic disease involving the right internal carotid artery without high-grade stenosis of the right internal carotid artery. 3. Fairly small caliber bilateral vertebral arteries which terminate before supplying blood flow to the basilar artery. There is no contrast opacification of the proximal segment of the basilar artery and little contrast opacification of the distal segment of the basilar artery. There are prominent bilateral posterior communicating arteries which are patent and predominantly supply blood flow to the right and left posterior cerebral arteries which are patent. The right and left posterior inferior cerebellar arteries are patent. Dictated by: Dictated on workstation # [id number]
[2019-08-07] MEDS ORDERED: NS IV 1000 ML 1,000 ML IV ONE (20:08)
--- NOTE | 2019-08-07 20:58 | NUR ---
CLEMENTE SERNA admitted to room 430-1, with an admitting diagnosis of CHEST PAIN, on 08/07/19 from ED via WHEELCHAIR, accompanied by STAFF.CLEMENTE SERNA introduced to surroundings, call light, bed controls, phone, TV, temperature control, lights, meal times, smoking policy, visitor policy, side rail policy, bathrooms and showers. Patient Rights given to patient in the handbook. CLEMENTE SERNA verbalizes understanding that [facility] is not responsible for the loss or damage to any personal effects or valuables that are kept in the patients posession during their hospitalization.
[2019-08-07] MEDS ORDERED: ONDANSETRON 4 MG/2 ML (SDV) Z0FRAN IV PRN (21:30)
[2019-08-07] MEDS ORDERED: NITROGLYCERIN 0.4 MG SL TABS BTL 25'S SL PRN (21:30)
[2019-08-07] MEDS ORDERED: morphine INJ 4 MG/ML 1 ML (VIAL/SYRINGE) IV PRN (21:30)
[2019-08-07] MEDS ORDERED: NS IV 1000 ML 1,000 ML IV SCH (21:30)
[2019-08-07] MEDS: CATHETER FLUSH 10 ML SYR IV SCH (21:32)
[2019-08-08 00:40] VITALS: BP 125/83
[2019-08-08 04:45] VITALS: BP 147/88
[2019-08-08 05:14] LABS: BASOPHILS % (AUTO) 0 % (0-10); EOSINOPHILS # (AUTO) 0.3 10^3/uL (0.0-0.3); EOSINOPHILS % (AUTO) 3 % (0-10); HEMATOCRIT 43 % (40-54); HEMOGLOBIN 14.3 G/DL (13.3-17.7); LYMPHOCYTES # (AUTO) 2.9 X 10^3 (1.0-4.0); LYMPHOCYTES % (AUTO) 32 % (12-44); MEAN CORPUSCULAR HEMOGLOBIN 29 PG (25-34); MEAN CORPUSCULAR HGB CONC 33 G/DL (32-36); MEAN CORPUSCULAR VOLUME 87 FL (80-99); MEAN PLATELET VOLUME 10.2 FL (7.4-10.4); MONOCYTES # (AUTO) 0.8 X 10^3 (0.0-1.0); MONOCYTES % (AUTO) 9 % (0-12); NEUTROPHILS # (AUTO) 5.1 X 10^3 (1.8-7.8); NEUTROPHILS % (AUTO) 56 % (42-75); PLATELET COUNT 245 10^3/uL (130-400); RED CELL DISTRIBUTION WIDTH 13.2 % (10.0-14.5)
[2019-08-08 05:36] LABS: ALANINE AMINOTRANSFERASE 26 U/L (0-55); ALBUMIN 3.9 GM/DL (3.2-4.5); ALKALINE PHOSPHATASE 86 U/L (40-136); BILIRUBIN,TOTAL 0.4 MG/DL (0.1-1.0); BUN/CREATININE RATIO 15; CALCIUM 9.2 MG/DL (8.5-10.1); CARBON DIOXIDE 23 MMOL/L (21-32); CHLORIDE 108 MMOL/L (98-107); CHOLESTEROL 154 MG/DL (< 200); GFR ESTIMATED > 60; GLUCOSE 123 MG/DL (70-105); HDL CHOLESTEROL 29 MG/DL (40-60); SODIUM 143 MMOL/L (135-145); TOTAL PROTEIN 6.9 GM/DL (6.4-8.2); TRIGLYCERIDES 190 MG/DL (<150); VLDL CHOLESTEROL 38 MG/DL (5-40)
[2019-08-08] MEDS: CATHETER FLUSH 10 ML SYR IV SCH ×2 (06:11→15:26)
[2019-08-08] MEDS: inSUlin ASPART (NovoLOG) 1 UNIT/0.01 ML (CHARGE PER UNIT) SC SCH ×2 (06:11→11:00)
[2019-08-08 08:00] VITALS: BP 139/81
[2019-08-08] MEDS ORDERED: ASPIRIN E.C. 81 MG (ECOTRIN) TAB PO SCH (09:00)
[2019-08-08 12:00] VITALS: BP 140/91
--- NOTE | 2019-08-08 12:12 | Short Stay Summary-Hospitalist ---
History of Present Illness HPI/Chief Complaint CC: Chest pain HPI: This is a 49yoWM clinic patient of Maggie Varela and Dr Conn s/p pacemaker placement by Dr Lubin 3 months ago who presented to the ER with vague chest pain and dyspnea and was in need of observation admit to evaluate for ACS. Currently he is feeling much better than yesterday. Family at the bedside. Dr Lubin will be consulted. Troponin serial enzymes have been negative. Source: patient, family, RN/MD, old records Exam Limitations: no limitations Date Seen 08/08/19 Time Seen by a Provider: 11:45 Attending Physician Aleida Reyes DO PCP No,Local Physician Referring Physician Date of Admission Aug 07, 2019 at 20:20 Home Medications & Allergies Home Medications Reviewed patient Home Medication Reconciliation performed by pharmacy medication reconciliations geospatial technician and/or nursing. Patients Allergies have been reviewed. Allergies Allergies Coded Allergies No Known Drug Allergies (Unverified01/12/13) Past Bgopsna-Ddtukb-Gjzhgo Hx Past Med/Social Hx: Reviewed Nursing Past Med/Soc Hx, Reviewed and Corrections made Patient Social History Marrital Status: Alcohol Use: Occasionally Uses Number of Drinks Today: 0 Recreational Drug Use: No Smoking Status: Current Everyday Smoker (1/2 PPD) Type Used: Cigarettes (1/2 PPD) 2nd Hand Smoke Exposure: Yes Recent Foreign Travel: No Contact w/other who traveled: No Recent Infectious Disease Expo: No Immunizations Up To Date Tetanus Booster (TDap): More than 5yrs Date of Pneumonia Vaccine: Mar 02, 2010 Date of Influenza Vaccine: May 17, 2019 Past Medical History Surgeries: Cardiac, Pacemaker Cardiac: Atrial Fibrillation, Hypertension, Irregular Heartbeat Pacemaker Reproductive: No HIV/AIDS: No Musculoskeletal: Gout History of Blood Disorders: No Adverse Reaction to Blood [place]: No (Never has had a transfusion) Family History Congenital heart disease G8 SISTER Hypertension SON Myocardial infarction 19 FATHER Heart Disease, CAD Over 55 Years Old, Hypertension Review of Systems Constitutional: see HPI EENTM: no symptoms reported Respiratory: dyspnea on exertion Cardiovascular: chest pain Gastrointestinal: nausea Genitourinary: no symptoms reported Musculoskeletal: no symptoms reported Skin: no symptoms reported Psychiatric/Neurological: No Symptoms Reported All Other Systems Reviewed Negative Unless Noted: Yes Physical Exam Physical Exam Vital Signs Vital Signs - First Documented 08/07/19 17:39 Temp 36.6 Pulse 71 Resp 18 B/P (MAP) 153/84 (107) Pulse Ox 98 O2 Delivery Room Air Capillary Refill : Less Than 3 SecondsNONE Height, Weight, BMI Height: 6'1.00" Weight: 214lbs. 3.0oz. 97.285001pc; 28.01 BMI Method:Stated General Appearance: No Apparent Distress, WD/WN, Other (STRONG ODOR OF CIGARETTES;) HEENT: PERRL/EOMI Neck: Full Range of Motion, Normal Inspection, Non Tender, Supple; No Carotid Bruit, No JVD Respiratory: Chest Non Tender, Normal Breath Sounds, No Accessory Muscle Use, No Respiratory Distress Cardiovascular: No Edema, No JVD, No Murmur, Normal Peripheral Pulses, Irregularly Irregular Gastrointestinal: Non Tender, Soft Extremity: Normal Capillary Refill, Normal Inspection, Normal Range of Motion, Non Tender, No Calf Tenderness, No Pedal Edema Neurologic/Psychiatric: Alert, Oriented x3, No Motor/Sensory Deficits, Normal Mood/Affect, talent development analyst II-XII Norm as Tested; No Abnormal Cerebellar Tests Skin: Normal Color, Warm/Dry Results Results/Procedures Labs Laboratory Tests 08/07/19 17:43 08/08/19 04:29 Patient resulted labs reviewed. Short Stay Diagnosis Discharge Diagnosis-Short Stay Admission Diagnosis Chest pain Pacemaker AF OAC GERD Final Discharge Diagnosis Chest pain Pacemaker AF OAC GERD Conclusion Plan Dr Lubin consult is appreciated DC home if ok with Cards Diagnosis/Problems Diagnosis/Problems (1) Chest pain Status: Acute (2) Numbness and tingling in left arm Status: Acute (3) Atrial fibrillation Status: Chronic Clinical Quality Measures DVT/VTE Risk/Contraindication: Risk Factor Score Per Nursin RFS Level Per Nursing on Admit: 2=Moderate ALEIDA REYES DO Aug 08, 2019 12:12 POS
[2019-08-08] MEDS ORDERED: lisINopril 20 MG (PRINIVIL) TABLET PO SCH (13:00)
[2019-08-08] MEDS ORDERED: DILTIAZEM 180 MG (CARDIZEM CD) CAP PO SCH (13:00)
[2019-08-08] MEDS ORDERED: PANTOPRAZOLE 40 MG (PROTONIX) TAB PO SCH (13:00)
[2019-08-08] MEDS ORDERED: meTOprolol SUCCINATE 100 MG (TOPROL XL) TAB PO SCH (13:00)
--- NOTE | 2019-08-08 14:00 | NUR ---
DR DAVIS CONSULTED, ORDERED PACEMAKER CHECK AND ECHO WITH BUBBLE STUDY.
--- NOTE | 2019-08-08 14:13 | Consultation-Cardiology ---
HPI-Cardiology Cardiology Consultation: Date of Consultation 08/08/19 Date of Admission Attending Physician Aleida Elias DO Admitting Physician Kari,Local Physician Consulting Physician Janay LUBIN MD HPI: Time Seen by a Provider: 14:04 Chief Complaint: Syncope, left arm numbness, chest pain This is a 49-year-old gentleman who has history of persistent atrial fibrillation. He follows with Dr. Conn. He is on oral anticoagulation. In March 2019 he presented with severe bradycardia and required a Medtronic MRI compatible pacemaker. He presents yesterday with complain of sharp chest discomfort. Mild shortness of breath. Left arm numbness followed by dizziness and passing out. He denies any other cardiac complaints. Active smoker. No significant family history. Review of Systems-Cardiology Review of Systems Constitutional: As described under HPI; No As described under HPI, No no symptoms reported, No chills, No fever; lightheadedness Eyes: No As described under HPI, No no symptoms reported, No blindness, No blurred vision, No contact lenses, No drainage, No decreased acuity, No foreign body sensation, No pain, No vision change Ears/Nose/Throat: No As described under HPI, No no symptoms reported, No chronic hearing loss, No ear discharge, No ear pain, No nasal drainage, No ulcerations Respiratory: No no symptoms reported; As described under HPI; No As described under HPI, No cough, No orthopnea, No shortness of breath, No SOB with excertion Cardiovascular: No no symptoms reported; As described under HPI; No As described under HPI; chest pain; No edema, No irregular heart rate, No lightheadedness, No palpitations Gastrointestinal: No no symptoms reported, No As described under HPI, No abdomen distended, No abdominal pain, No blood streaked bowels, No constipation, No diarrhea, No nausea, No vomiting, No stool coloration changes Genitourinary: No As described under HPI, No burning, No dysuria, No discharge, No frequency, No flank pain, No hematuria, No urgency Skin: No rash, No skin related problems, No ulcerations Psychiatric/Neurological: As described under HPI, numbness, syncope; No anxiety, No depression, No seizure, No focal weakness Hematologic: No bleeding abnormalities PCX-Gbtdxp-Jfwfjh Hx Patient Social History Alcohol Use: Occasionally Uses Recreational Drug Use: No Smoking Status: Current Everyday Smoker (1/2 PPD) Type Used: Cigarettes (1/2 PPD) 2nd Hand Smoke Exposure: Yes Recent Foreign Travel: No Recent Infectious Disease Expo: No Hospitalization with Isolation: Denies Immunizations Up To Date Tetanus Booster (TDap): More than 5yrs Date of Pneumonia Vaccine: Mar 02, 2010 Date of Influenza Vaccine: May 17, 2019 Past Medical History PMH As described under Assessment. Family Medical History Family History: Congenital heart disease G8 SISTER Hypertension SON Myocardial infarction 19 FATHER Allergies and Home Medications Allergies Coded Allergies: No Known Drug Allergies (Unverified , 01/12/13) Home Medications Diltiazem HCl 360 Mg Cap.er.24h, 360 MG PO DAILY, (Reported) Lisinopril 20 Mg Tablet, 20 MG PO DAILY, (Reported) Metoprolol Succinate 100 Mg Tab.er.24h, 100 MG PO DAILY, (Reported) Pantoprazole Sodium 40 Mg Tablet.dr, 40 MG PO DAILY, (Reported) Rivaroxaban 20 Mg Tablet, 20 MG PO DAILY, (Reported) Patient Home Medication List Home Medication List Reviewed: Yes Physical Exam-Cardiology Physical Exam Vital Signs/I&O 08/08/19 08/08/19 08/08/19 08/08/19 04:45 07:00 08:00 08:00 Temp 36.7 36.6 Pulse 71 78 70 Resp 18 18 B/P (MAP) 147/88 (107) 139/81 (100) Pulse Ox 95 97 97 O2 Delivery Room Air Room Air Room Air 08/08/19 13:00 Pulse 82 08/08/19 00:00 Intake Total 1000 ml Balance 1000 ml Capillary Refill : Less Than 3 SecondsNONE Constitutional: appears stated age, AAO x 3; No apparent distress; well- developed, well-nourished HEENT: PERRL; No discharge; hearing is well preserved, oral hygience is good; No ulceration, No xanthelasmas are seen Neck: No carotid bruit; carotid pulses are 2 + bilaterally Respiratory: chest is bilaterally symmetric, lungs clear to auscultation Cardiovascular: irregularly irregular, S1 and S2 Gastrointestinal: soft, audible bowel sounds; No spleenomegaly Rectal: deferred Extremities: normal range of motion, non-tender, normal inspection; No clubbing, No cyanosis; no lower extremity edema bilateral; No significant edema Neurologic/Psychiatric: no motor/sensory deficits, alert, normal mood/affect, oriented x 3, power is 5/5 both on sides Skin: normal color, warm/dry; No rash, No ulcerations Data Review Labs Laboratory Tests 08/07/19 17:43: White Blood Count 11.4H, Red Blood Count 5.68, Hemoglobin 16.7, Hematocrit 49, Mean Corpuscular Volume 86, Mean Corpuscular Hemoglobin 29, Mean Corpuscular Hemoglobin Concent 34, Red Cell Distribution Width 13.3, Platelet Count 281, Mean Platelet Volume 10.2, Neutrophils (%) (Auto) 69, Lymphocytes (%) (Auto) 25, Monocytes (%) (Auto) 5, Eosinophils (%) (Auto) 1, Basophils (%) (Auto) 0, Neutrophils # (Auto) 7.8, Lymphocytes # (Auto) 2.8, Monocytes # (Auto) 0.6, Eosinophils # (Auto) 0.2, Basophils # (Auto) 0.0, Prothrombin Time 23.4H, INR Comment 2.0H, Activated Partial Thromboplast Time 41H, Sodium Level 140, Pot assium Level 4.2, Chloride Level 103, Carbon Dioxide Level 21, Anion Gap 16H, Blood Urea Nitrogen 15, Creatinine 1.04, Estimat Glomerular Filtration Rate > 60, BUN/Creatinine Ratio 14, Glucose Level 248H, Calcium Level 9.7, Corrected Calcium , Magnesium Level 2.1, Total Bilirubin 0.5, Aspartate Amino Transf (AST/SGOT) 27, Alanine Aminotransferase (ALT/SGPT) 33, Alkaline Phosphatase 109, Total Creatine Kinase 97, Creatine Kinase MB 1.5, Myoglobin 33.6, Troponin I < 0 .028, B-Type Natriuretic Peptide 90.3, Total Protein 8.8H, Albumin 4.7H, Amylase Level 50, Lipase 43, Serum Alcohol < 10 08/07/19 21:22: Troponin I < 0.028 08/08/19 04:29: White Blood Count 9.0, Red Blood Count 4.95, Hemoglobin 14.3, Hematocrit 43, Mean Corpuscular Volume 87, Mean Corpuscular Hemoglobin 29, Mean Corpuscular Hemoglobin Concent 33, Red Cell Distribution Width 13.2, Platelet Count 245, Mean Platelet Volume 10.2, Neutrophils (%) (Auto) 56, Lymphocytes (%) (Auto) 32, Monocytes (%) (Auto) 9, Eosinophils (%) (Auto) 3, Basophils (%) (Auto) 0, Neutrophils # (Auto) 5.1, Lymphocytes # (Auto) 2.9, Monocytes # (Auto) 0.8, Eosinophils # (Auto) 0.3, Basophils # (Auto) 0.0, Sodium Level 143, Potassium Level 4.0, Chloride Level 108H, Carbon Dioxide Level 23, Anion Gap 12, Blood U richa Nitrogen 12, Creatinine 0.80, Estimat Glomerular Filtration Rate > 60, BUN/Creatinine Ratio 15, Glucose Level 123H, Calcium Level 9.2, Corrected Calcium 9.3, Total Bilirubin 0.4, Aspartate Amino Transf (AST/SGOT) 18, Alanine Aminotransferase (ALT/SGPT) 26, Alkaline Phosphatase 86, Total Protein 6.9, Albumin 3.9, Triglycerides Level 190H, Cholesterol Level 154, LDL Cholesterol Direct 106, VLDL Cholesterol 38, HDL Cholesterol 29L 08/08/19 11:27: Glucometer 112H A/P-Cardiology Assessment/Admission Diagnosis Chest pain, Left arm numbness, Possible syncope, History of permanent pacemaker, Medtronic MRI compatible, Long-standing persistent atrial fibrillation on oral anticoagulation Plan Chest pain, serial troponin negative. Nuclear stress test done in 2012 was negative. He will need nuclear stress test on Saturday. Left arm numbness, I have read the radiologist's report on the CT scan. It s eems that he may have had a small lacunar old infarct however there is no evidence of an acute infarct, an MRI is recommended. The pacemaker is MRI compatible. Possible syncope, unclear history. He told the ER attending that he did not have syncope. However he told me that he did pass out. Before passing out he was very dizzy and then he does not remember anything and his found him on the floor. History of permanent pacemaker, Medtronic MRI compatible, I will try to arrange for a remote device interrogation, to see if the patient had any arrhythmia around the time that the patient had symptoms. Long-standing persistent atrial fibrillation on oral anticoagulation. Echocardiogram with bubble study. Thank you for your consultation. Please call me if you have any questions. Siomara Lubin MD, FACP, FACC, FSCAI, FHRS, CCDS Interventional Cardiology Cardiac Electrophysiology Vascular Medicine and Endovascular Interventions Clinical Quality Measures DVT/VTE Risk/Contraindication: Risk Factor Score Per Nursin RFS Level Per Nursing on Admit: 2=Moderate Janay LUBIN MD Aug 08, 2019 14:13 POS
--- NOTE | 2019-08-08 15:30 | NUR ---
RESULTS OF PACEMAKER CHECK CALLED TO DR DAVIS, PATIENT IS IN A FIB BUT NO ISSUE WITH PACEMAKER.
[2019-08-08 15:38] VITALS: BP 146/88
--- NOTE | 2019-08-08 17:00 | NUR ---
ORDER FOR MRI FAXED TO SCHEDULING, MESSAGE LEFT ON ANSWERING MACHINE, RADIOLOGY NOTIFIED OF ORDER FOR MRI SATURDAY,
--- NOTE | 2019-08-08 17:25 | NUR ---
CLEMENTE SERNA demonstrates understanding of discharge instructions and accurately returns instructions upon questioning. Copy of Post-Discharge Instructions and Medication Discharge Instructions given to PATIENT. CLEMENTE SERNA is able to manage continuing needs after discharge. Patients belongings returned to PATIENT. Skin dry and intact; no breakdown noted. Patient discharged from [facility] on 08/08/19 at 1725 . CLEMENTE SERNA left floor via W/C, accompanied by FAMILY AND STAFF.
[2019-08-08 18:18] VITALS: BP 146/88
[2019-08-09] MEDS ORDERED: DILTIAZEM 180 MG (CARDIZEM CD) CAP PO SCH (09:00)
[2019-08-09] MEDS ORDERED: meTOprolol SUCCINATE 100 MG (TOPROL XL) TAB PO SCH (09:00)
[2019-08-09] MEDS ORDERED: PANTOPRAZOLE 40 MG (PROTONIX) TAB PO SCH (09:00)
[2019-08-09] MEDS ORDERED: RIVAROXABAN 20 MG TABLET (XARELTO) PO SCH (09:00)
[2019-08-09] MEDS ORDERED: lisINopril 20 MG (PRINIVIL) TABLET PO SCH (09:00)
== END 2019-08-08 16:23 | disposition home or self-care (01) ==
LOC: EDUNIT# 17:39 → ER 17:40 → 4TH 20:20 → UNDOADMOB 20:20 → 4TH 20:55 → UNDODISOB 08-08 17:25
PROVIDERS: ADMIT Family Medicine; ATTEND Internal Medicine
DX: I48.20 Chronic atrial fibrillation, unspecified (principal); I10 Essential (primary) hypertension; I47.1 Supraventricular tachycardia; I70.90 Unspecified atherosclerosis; I67.9 Cerebrovascular disease, unspecified; M10.9 Gout, unspecified; R73.9 Hyperglycemia, unspecified; K21.9 Gastro-esophageal reflux disease without esophagitis; Q87.0 Congenital malformation syndromes predominantly affecting facial appearance; F17.210 Nicotine dependence, cigarettes, uncomplicated; Z95.0 Presence of cardiac pacemaker; Z82.49 Family history of ischemic heart disease and other diseases of the circulatory system
CPT/HCPCS: 36415; 70450; 70496; 70498; 71045; 71275; 80053; 80061; 80320; 82150; 82550; 82553; 82962; 83036; 83690; 83735; 83874; 83880; 84484; 85025; 85610; 85730; 93005; 93041; 93306; 96360; G0378

== ENCOUNTER → 2019-08-25 | Outpatient (CLI) | payer BC ==
[~2019-08-25] VITALS: Ht 182 cm; Wt 97.0 kg
[~2019-08-25] MED LIST changes: +ALLO100T PO; +CATHETER FLUSH 10 ML SYR IV PRN; +DRON400T2 PO; +REGADENOSON 0.4 MG/5 ML SYR (LEXISCAN) IV ONE
== END ==
LOC: CARD 06:48
PROVIDERS: ATTEND Internal Medicine Interventional Cardiology
DX: I48.11 Longstanding persistent atrial fibrillation (principal); I47.1 Supraventricular tachycardia; I45.89 Other specified conduction disorders; Z95.0 Presence of cardiac pacemaker
CPT/HCPCS: 78452; 93017

== ENCOUNTER → 2019-09-18 | Outpatient (CLI) | payer BC ==
[~2019-09-18] MED LIST changes: -CATHETER FLUSH 10 ML SYR IV PRN; -REGADENOSON 0.4 MG/5 ML SYR (LEXISCAN) IV ONE
--- NOTE | 2019-09-18 13:19 | Diagnostic Imaging Report ---
INDICATION: Pre-MRI screening. TIME OF EXAM: 1:12 p.m. COMPARISON: Correlation is made with prior chest from 08/07/2019. FINDINGS: Dual-lead left subclavian cardiac pacemaker has lead tips in the region of the right atrium and right ventricle. No abandoned leads are identified. The lungs are clear. The pulmonary vascularity is normal. The heart size is normal. No infiltrate, effusion, or pneumothorax is detected. IMPRESSION: No evidence of abandoned leads. Dictated by: Dictated on workstation # [id number]
--- NOTE | 2019-09-18 13:51 | Diagnostic Imaging Report ---
PROCEDURE: MR imaging of the brain without contrast. TECHNIQUE: Multiplanar, multisequence MR imaging of the brain was performed without contrast. INDICATION: Patient blacked out in July 2019. Evaluate for stroke. COMPARISON: 08/07/2019. FINDINGS: No acute ischemia, mass, or hemorrhage. Small focal infarct is noted in the right centrum semiovale. Additional scattered areas of chronic microvascular disease are seen in the periventricular and subcortical white matter. The ventricles, cortical sulci, and basilar cisterns are symmetric and unremarkable. The sellar and suprasellar regions have a normal appearance. The major intracranial flow voids are intact. The brainstem and posterior fossa are unremarkable. Mucosal thickening is seen in the bilateral ethmoid sinuses and left maxillary sinus. A mastoid effusion is noted on the left. The globes and orbits are symmetric and unremarkable. The scalp and calvarium have a normal appearance. IMPRESSION: 1. No acute ischemia, mass, or hemorrhage. 2. Old small lacunar infarct in the right centrum semiovale. 3. Chronic microvascular disease in the periventricular and subcortical white matter. Dictated by: Dictated on workstation # [id number]
== END ==
LOC: RAD 08-12 14:06
PROVIDERS: ATTEND Internal Medicine Interventional Cardiology
DX: Z01.818 Encounter for other preprocedural examination (principal); G93.89 Other specified disorders of brain; I63.9 Cerebral infarction, unspecified; R07.9 Chest pain, unspecified
CPT/HCPCS: 70551; 71045

== ENCOUNTER → 2020-04-02 | Outpatient (CLI) | payer BC, OTHER ==
[~2020-04-02] MED LIST changes: -METO-395 PO; +MTP100TCR PO
== END ==
LOC: LABNPT 07:33
PROVIDERS: ATTEND Nurse Practitioner
DX: Z53.9 Procedure and treatment not carried out, unspecified reason (principal)

== ENCOUNTER 2022-04-03 14:17 | Emergency (ER) | payer OTHER ==
[~2022-04-03] VITALS: Ht 185 cm; Wt 90.7 kg
[~2022-04-03 14:17] MED LIST changes: -DRON400T2 PO; +DRON400T6 PO; -LISI-552 PO; +LISI20TA26 PO; -PANT40TA3 PO; +PANT40TA52 PO
--- NOTE | 2022-04-03 15:11 | ED Respiratory ---
General Chief Complaint: Respiratory Problems Stated Complaint: DIZZINESS,SOB Nursing Triage Note: PT PRESENTS TO ED VIA POV FROM HOME ACCOMPANIED BY WITH COMPLAINTS OF SOA WITH EXERTION AND DIZZINESS STARTING AROUND 1230 TODAY. PT DENIES FEVER, CHILLS, COUGH. Source: patient Exam Limitations: no limitations History of Present Illness Date Seen by Provider: Apr 03, 2022 Time Seen by Provider: 15:08 Initial Comments Patient is a 51-year-old male with a history of coronary artery disease, who presents the ED with dizziness, shortness of breath with exertion. Symptoms started around 1230 today. States he was walking to the bathroom. Started feeling dizzy with black spots in his vision with associated shortness of breath. This lasted for about 2 hours. He had no chest pain during this occurrence. Symptoms have resolved. Did feel some numbness and tingling into his left fingertips which has resolved. He states similar symptoms in the past when his heart rate was in the teens which required a pacemaker. States yesterday he felt nauseous vomiting with diarrhea. That has improved. Denies of any cough. No recent travels or surgeries. Currently on Eliquis 15 mg. Does have a [employer] pacemaker. Patient denies of any current headache, visual changes, unilateral muscle weakness or sensory changes, facial droop. No one else at home has been sick. Allergies and Home Medications Allergies Coded Allergies: No Known Drug Allergies (Unverified , 01/12/13) Patient Home Medication List Home Medication List Reviewed: Yes Allopurinol (Allopurinol) 100 Mg Tablet, 100 MG PO DAILY, (Reported) Entered as Reported by: RADHA PALOMINO on 08/27/19 0725 Diltiazem HCl (Diltiazem 24Hr ER) 360 Mg Cap.er.24h, 360 MG PO DAILY, (Reported) Entered as Reported by: SHRUTI SCHAFFER on 04/07/19 09 Dronedarone HCl (Multaq) 400 Mg Tablet, 400 MG PO BID PRN for BLOOD PRESSURE, (Reported) Entered as Reported by: BENNETT ARMENTA on 08/28/19 0743 Lisinopril (Lisinopril) 20 Mg Tablet, 20 MG PO DAILY, (Reported) Entered as Reported by: SHRUTI SCHAFFER on 04/07/19 09 Metoprolol Succinate (Metoprolol Succinate) 100 Mg Tab.er.24h, 100 MG PO DAILY, (Reported) Entered as Reported by: SHRUTI SCHAFFER on 04/07/19902 Pantoprazole Sodium (Pantoprazole Sodium) 40 Mg Tablet.dr, 40 MG PO DAILY, (Reported) Entered as Reported by: SHRUTI SCHAFFER on 04/07/19902 Rivaroxaban (Xarelto Tablet) 20 Mg Tablet, 20 MG PO DAILY, (Reported) Entered as Reported by: SHRUTI SCHAFFER on 04/07/19902 Review of Systems Review of Systems Constitutional: No chills, No diaphoresis, No malaise, No weakness EENTM: No hearing loss, No ear pain, No blurred vision, No double vision, No mouth pain, No mouth swelling Respiratory: No cough, No dyspnea on exertion; short of breath Cardiovascular: No chest pain Gastrointestinal: diarrhea; No dysphagia, No hematemesis; nausea, vomiting Genitourinary: No decreased output, No discharge Musculoskeletal: No back pain All Other Systems Reviewed Negative Unless Noted: Yes Past Uobxdzq-[id number]-Gyptkg Hx Patient Social History Tobacco Use?: No Use of E-Cig and/or Vaping dev: No Substance use?: No Alcohol Use?: No Pt feels they are or have been: No Immunizations Up To Date Tetanus Booster (TDap): More than 5yrs Past Medical History Surgeries: Yes (Cardiac Ablation x2, Pacemaker; LINQ RECORDER DEVICE IMPLANTED; DINO) Cardiac, Pacemaker Respiratory: No Cardiac: Yes Atrial Fibrillation, Hypertension, Irregular Heartbeat Neurological: No Reproductive Disorders: No HIV/AIDS: No Genitourinary: No Gastrointestinal: No Musculoskeletal: Yes Gout Endocrine: No HEENT: No Cancer: No Psychosocial: No Integumentary: No Blood Disorders: No Adverse Reaction/Blood Tranf: No (Never has had a transfusion) Family Medical History Congenital heart disease G8 SISTER Hypertension SON Myocardial infarction 19 FATHER Heart Disease, CAD Over 55 Years Old, Hypertension Physical Exam Vital Signs - First Documented 04/03/22 04/03/22 14:52 18:34 Temp 36.7 Pulse 92 Resp 16 B/P (MAP) 147/101 (116) Pulse Ox 97 O2 Delivery Room Air Capillary Refill : Less Than 3 Seconds Height: 6'1.00" Weight: 214lbs. 3.0oz. 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, no motor/sensory deficits, alert, normal mood/affect, oriented x 3 Skin: normal color Progress/Results/Core Measures Suspected Sepsis SIRS Temperature: Pulse: 92 Respiratory Rate: 16 Laboratory Tests 04/03/22 15:04: White Blood Count 8.7 Blood Pressure 147 /101 Mean: 116 Laboratory Tests 04/03/22 15:04: Creatinine 0.88, INR Comment 1.1, Platelet Count 291, Total Bilirubin 0.6 Results/Orders Lab Results Laboratory Tests Test 04/03/22 15:04 04/03/22 15:17 04/03/22 17:50 Range/Units White Blood Count 8.7 4.3-11.0 10^3/uL Red Blood Count 5.36 4.30-5.52 10^6/uL Hemoglobin 15.8 13.3-17.7 g/dL Hematocrit 46 40-54 % Mean Corpuscular Volume 86 80-99 fL Mean Corpuscular Hemoglobin 30 25-34 pg Mean Corpuscular Hemoglobin Concent 34 32-36 g/dL Red Cell Distribution Width 13.1 10.0-14.5 % Platelet Count 291 130-400 10^3/uL Mean Platelet Volume 9.8 9.0-12.2 fL Immature Granulocyte % (Auto) 0 % Neutrophils (%) (Auto) 69 42-75 % Lymphocytes (%) (Auto) 21 12-44 % Monocytes (%) (Auto) 7 0-12 % Eosinophils (%) (Auto) 1 0-10 % Basophils (%) (Auto) 1 0-10 % Neutrophils # (Auto) 6.0 1.8-7.8 X 10^3 Lymphocytes # (Auto) 1.9 1.0-4.0 X 10^3 Monocytes # (Auto) 0.6 0.0-1.0 X 10^3 Eosinophils # (Auto) 0.1 0.0-0.3 10^3/uL Basophils # (Auto) 0.1 0.0-0.1 10^3/uL Immature Granulocyte # (Auto) 0.0 0.0-0.1 10^3/uL Prothrombin Time 14.4 12.2-14.7 SEC INR Comment 1.1 0.8-1.4 Activated Partial Thromboplast Time 32 24-35 SEC Sodium Level 138 135-145 MMOL/L Potassium Level 4.3 3.6-5.0 MMOL/L Chloride Level 105 98-107 MMOL/L Carbon Dioxide Level 21 21-32 MMOL/L Anion Gap 12 5-14 MMOL/L Blood Urea Nitrogen 17 7-18 MG/DL Creatinine 0.88 0.60-1.30 MG/DL Estimat Glomerular Filtration Rate 104 BUN/Creatinine Ratio 19 Glucose Level 170 H 70-105 MG/DL Calcium Level 9.2 8.5-10.1 MG/DL Corrected Calcium 9.1 8.5-10.1 MG/DL Magnesium Level 1.8 1.6-2.4 MG/DL Total Bilirubin 0.6 0.1-1.0 MG/DL Aspartate Amino Transf (AST/SGOT) 23 5-34 U/L Alanine Aminotransferase (ALT/SGPT) 29 0-55 U/L Alkaline Phosphatase 111 40-136 U/L Myoglobin 28.0 10.0-92.0 NG/ML Troponin I < 0.028 < 0.028 <0.028 NG/ML B-Type Natriuretic Peptide 65.7 <100.0 PG/ML Total Protein 7.9 6.4-8.2 GM/DL Albumin 4.1 3.2-4.5 GM/DL Lipase 44 8-78 U/L Influenza Type A (RT-PCR) Not Detected Not Detecte Influenza Type B (RT-PCR) Not Detected Not Detecte SARS-CoV-2 RNA (RT-PCR) Not Detected Not Detecte My Orders Orders - CHERYLE ORO PA Cbc With Automated Diff (04/03/22 15:06) Magnesium (04/03/22 15:06) Chest 1 View, Ap/Pa Only (04/03/22 15:06) Ekg Tracing (04/03/22 15:06) Comprehensive Metabolic Panel (04/03/22 15:06) Myoglobin Serum (04/03/22 15:06) Protime With Inr (04/03/22 15:06) Partial Thromboplastin Time (04/03/22 15:06) Monitor-Rhythm Ecg Trace Only (04/03/22 15:06) Ed Iv/Invasive Line Start (04/03/22 15:06) Bnp [place] (04/03/22 15:06) Troponin I [place] (04/03/22 15:06) Aspirin Chewable Tablet (Baby Aspirin Ch (04/03/22 15:15) Lipase (04/03/22 15:06) Covid 19 Inhouse Test (04/03/22 15:06) Influenza A And B By Pcr (04/03/22 15:06) Ct Head Wo (04/03/22 15:45) Troponin I Devang (04/03/22 18:04) Medications Given in ED Current Medications Medications Dose Ordered Sig/Aisha Route Start Time Stop Time Status Last Admin Dose Admin Aspirin 324 mg ONCE ONCE PO 04/03/22 15:15 04/03/22 15:16 DC 04/03/22 15:43 324 MG Vital Signs/I&O 04/03/22 04/03/22 14:52 18:34 Temp 36.7 Pulse 92 92 Resp 16 13 B/P (MAP) 147/101 (116) 131/106 Pulse Ox 97 98 O2 Delivery Room Air Capillary Refill : Less Than 3 Seconds Blood Pressure Mean: 116 Departure Communication (PCP) Patient on arrival is currently asymptomatic. Patient EKG showed atrial flutter with 84 bpm. Symptoms around 1230 felt short of breath dizzy lightheaded with exertion. Asymptomatic on arrival. patient had a stress test in 2019 with negative for ischemia. Had a pac[place] [address] Lubin secondary to symptomatic bradycardia. History of A. fib. Currently on Eliquis. Chest x- ray unremarkable. Lab work otherwise unremarkable with normal cardiac work-up. He is not hypoxic or tachycardic. Interrogation of the pacemaker did not show any abnormal arrhythmias. Patient was discussed with Dr. Ashraf who felt like as long as patient is asymptomatic and serial troponin patient can be discharged. Patient was in atrial flutter with no previous history. Cardiology did not appear concern at this time. He is currently on anticoagulants and currently asymptomatic. Patient appears well and nontoxic. Afebrile. No other complaints. No meningeal signs. CT scan the head was ordered secondary to the numbness and tingling in his left hand. No intracranial bleed or fracture. mucosal thickening of the left ethmoid cell. No maxillary sinus tenderness. Patient COVID and influenza was negative. Recommend outpatient follow-up with cardiology. If symptoms progress or worsen to return back to ED for further evaluation. Patient agrees with plan of action. Provided work note for today recommend follow-up with your export sales assistant for further evaluation. Impression Primary Impression: Dizziness Additional Impression: Atrial flutter Disposition: HOME, SELF-CARE Condition: Stable Departure-Patient Inst. Decision time for Depature: 18:24 Referrals: NO,LOCAL PHYSICIAN (PCP) Primary Care Physician KRYSTEN BEST (Family) Primary Care Physician CHAR LUJAN MD Patient Instructions: Atrial Fibrillation and Atrial Flutter ED Add. Discharge Instructions: If develop shortness of breath, dizziness or chest pain recommend returning back to ED. All discharge instructions reviewed with patient and/or family. Voiced understanding. CHERYLE ORO Apr 03, 2022 15:11
[2022-04-03] MEDS ORDERED: ASPIRIN 81 MG CHEW (CHILDREN'S ASA) PO ONE (15:15)
[2022-04-03 15:17] LABS: BASOPHILS # (AUTO) 0.1 10^3/uL (0.0-0.1); BASOPHILS % (AUTO) 1 % (0-10); EOSINOPHILS # (AUTO) 0.1 10^3/uL (0.0-0.3); EOSINOPHILS % (AUTO) 1 % (0-10); HEMATOCRIT 46 % (40-54); HEMOGLOBIN 15.8 g/dL (13.3-17.7); LYMPHOCYTES # (AUTO) 1.9 X 10^3 (1.0-4.0); LYMPHOCYTES % (AUTO) 21 % (12-44); MEAN CORPUSCULAR HEMOGLOBIN 30 pg (25-34); MEAN CORPUSCULAR HGB CONC 34 g/dL (32-36); MEAN CORPUSCULAR VOLUME 86 fL (80-99); MEAN PLATELET VOLUME 9.8 fL (9.0-12.2); MONOCYTES # (AUTO) 0.6 X 10^3 (0.0-1.0); MONOCYTES % (AUTO) 7 % (0-12); NEUTROPHILS % (AUTO) 69 % (42-75); PLATELET COUNT 291 10^3/uL (130-400); WHITE BLOOD COUNT 8.7 10^3/uL (4.3-11.0)
[2022-04-03 15:26] LABS: INR 1.1 (0.8-1.4); PROTHROMBIN TIME PATIENT 14.4 SEC (12.2-14.7)
[2022-04-03 15:27] LABS: ALBUMIN 4.1 GM/DL (3.2-4.5)
[2022-04-03 15:28] LABS: POTASSIUM 4.3 MMOL/L (3.6-5.0)
[2022-04-03 15:29] LABS: CALCIUM 9.2 MG/DL (8.5-10.1)
[2022-04-03 15:30] LABS: TOTAL PROTEIN 7.9 GM/DL (6.4-8.2)
[2022-04-03 15:32] LABS: BILIRUBIN,TOTAL 0.6 MG/DL (0.1-1.0)
[2022-04-03 15:34] LABS: CREATININE SERUM 0.88 MG/DL (0.60-1.30)
[2022-04-03 15:37] LABS: MAGNESIUM 1.8 MG/DL (1.6-2.4)
[2022-04-03 15:38] LABS: LIPASE 44 U/L (8-78)
--- NOTE | 2022-04-03 15:46 | Diagnostic Imaging Report ---
INDICATION: Chest pain, shortness of air with exertion. Dizziness. COMPARISON: 09/18/2019. FINDINGS: Single frontal view of the chest demonstrates normal heart size and pulmonary vascularity. The lungs are well aerated and clear. No large pleural effusion or pneumothorax is seen. The visualized osseous structures show no acute abnormalities. Left-sided dual-lead pacemaker is noted. IMPRESSION: 1. No acute cardiopulmonary process. Dictated by: Dictated on workstation # [id number]
--- NOTE | 2022-04-03 16:17 | Diagnostic Imaging Report ---
INDICATION: Shortness of breath and dizziness. TECHNIQUE: Multiple contiguous axial images were obtained through the brain without the use of intravenous contrast. Auto Exposure Controls were utilized during the CT exam to meet ALARA standards for radiation dose reduction. COMPARISON: 08/07/2019. FINDINGS: There are no extra-axial fluid collections. No intracranial hemorrhage. No intracranial mass or mass effect. No midline shift. The ventricles are normal in size and position. There are no focal parenchymal abnormalities in the brain. Calvarial windows appear unremarkable. 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 There is some mild mucosal thickening in the left ethmoid air cells. IMPRESSION: No acute intracranial abnormality or calvarial fracture. There is extensive opacification of the left maxillary sinus with some expansion, compatible with mucocele. Mild mucosal thickening in the left ethmoid air cells. Dictated by: Dictated on workstation # [id number]
[2022-04-03 18:34] VITALS: BP 131/106
== END 2022-04-03 18:34 | disposition home or self-care (01) ==
LOC: EDUNIT# 14:17 → ER 14:19
DX: I48.92 Unspecified atrial flutter (principal); Z79.01 Long term (current) use of anticoagulants; Z95.0 Presence of cardiac pacemaker; Z20.822 Contact with and (suspected) exposure to COVID-19
CPT/HCPCS: 36415; 70450; 71045; 80053; 83690; 83735; 83874; 83880; 84484; 85025; 85610; 85730; 87636; 93005; 93041

== ENCOUNTER → 2022-09-19 | Outpatient (CLI) | payer OTHER | LOC: CARD 10:17 | PROVIDERS: ATTEND Internal Medicine Cardiovascular Disease | DX: I11.9 Hypertensive heart disease without heart failure (principal); I35.8 Other nonrheumatic aortic valve disorders | CPT/HCPCS: 93306 ==